=== PATIENT | female | born 1980 | race Caucasian/White ===

== ENCOUNTER 2021-04-22 11:56 | Emergency (ER) | payer MEDICAID, SELFPAY ==
[2021-04-22 11:57] VITALS: BP 163/105; PULSE 101; RESP 16; TEMP 36.8; O2SAT 97; BMI 53.8
--- NOTE | 2021-04-22 12:19 | CT_ITS ---
EXAM: CT ABDOMEN AND PELVIS WITHOUT INTRAVENOUS CONTRAST CLINICAL INDICATION: Left flank pain, eval for stone TECHNIQUE: Helically acquired images were obtained of the abdomen and pelvis without intravenous contrast. This CT exam was performed using one or more of the following dose reduction techniques: automated exposure control, adjustment of the mA and/or kV according to patient size, and/or use of iterative reconstruction technique. This report was created using [employer] report generation technology. COMPARISON: None. FINDINGS: LOWER THORAX: Unremarkable. Lung bases are clear. No cardiomegaly. No significant pericardial effusion. ABDOMEN: LIVER: Unremarkable. Homogeneous. GALLBLADDER AND BILE DUCTS: Cholecystectomy. No intra- or extrahepatic biliary ductal dilation. PANCREAS: Unremarkable. No focal cystic mass. SPLEEN: Unremarkable. Normal size without focal cystic or solid mass. ADRENALS: Unremarkable. No nodules. KIDNEYS AND URETERS: 3 mm calculus of the proximal left ureter with mild hydronephrosis and perinephric stranding. Bilateral renal calculi are identified most conspicuous in the inferior left kidney measuring up to 5 mm. Normal renal size and position. STOMACH AND BOWEL: Unremarkable. No stomach or bowel distention. No focal inflammatory change. PELVIS: APPENDIX: No evidence of acute appendicitis. BLADDER: Unremarkable. REPRODUCTIVE: Unremarkable as visualized. No mass. ABDOMEN and PELVIS: INTRAPERITONEAL SPACE: Unremarkable. No ascites or other fluid collection. No free air. BONES/JOINTS: Unremarkable. No suspicious lytic or blastic abnormality. SOFT TISSUES: Unremarkable. No discrete abdominal or pelvic wall hernia. VASCULATURE: Unremarkable. Abdominal aorta is non-dilated. LYMPH NODES: Unremarkable. No enlarged lymph nodes. TUBES, LINES AND DEVICES: Bilateral fallopian tube occlusion devices. CT/Abdomen/Pelvis without Cont IMPRESSION: 3 mm calculus of the proximal left ureter with mild hydronephrosis and perinephric stranding. Electronically Signed: Doug Leblanc MD (Brooks) at 14:22 EDT , Service support ,
--- NOTE | 2021-04-22 12:38 | EX.ED.DYSGE1 ---
HPI History of Present Illness Chief Complaint: Back Informant: patient Narrative Narrative: Patient is a 40-year-old female who presents to the emergency department for left-sided back pain that wraps around to the left side of her abdomen. This initially started on Saturday. On she did not have any pain. She does not recall any inciting events. She is never had this type of pain before. She does have a history of kidney stones. She denies having any urinary symptoms. No burning with urination, blood in the urine. She has occasionally been nauseous but not vomiting. She denies any change in moving her bowels. No chest pain or shortness of breath. She currently rates the pain as a 7 out of 10. Taking hot baths does seem to relieve this. She has not taken anything for pain today. She does have a history of cholecystectomy as well as tubal ligation. [facility] Medical History (Updated 04/22/21 @ 15:[address] Rafael Hutson DO) Cholecystectomy planned Hyperlipidemia Hyperthyroidism Home Medications cephalexin 500 mg PO BID 7 Days #14 cap 04/22/21 [Rx Last Taken Unknown] hydrocodone-acetaminophen 1 tab PO Q6H 3 Days #12 tablet 04/22/21 [Rx Last Taken Unknown] naproxen [Naprosyn] 500 mg PO Q12H PRN #20 tab 04/22/21 [Rx Last Taken Unknown] tamsulosin [Flomax] 0.4 mg PO DAILY #7 cap 04/22/21 [Rx Last Taken Unknown] Allergy/AdvReac Type Severity Reaction Status Date / Time No Known Allergies Allergy Verified 04/22/21 11:57 Social History Smoking Status: Current every day smoker tobacco type: cigarettes ROS ROS ED Constitutional Constitutional ED: Denies chills or fever(s) Eyes Eyes: Denies change in vision ENT ENT ED: Denies epistaxis or rhinorrhea Cardiovascular Cardiovascular: Denies chest pain or palpitations Respiratory/Chest Respiratory/Chest: Denies cough, dyspnea or dyspnea on exertion Gastrointestinal Gastrointestinal: Reports abdominal pain; Denies diarrhea or vomiting Genitourinary Genitourinary ED: Denies dysuria, hematuria or urinary frequency Musculoskeletal Musculoskeletal: Reports back pain; Denies neck pain Integumentary Denies rash Neurologic Neurologic: Denies dizziness, headache(s) or weakness EXAM Physical Exam Const Vital Signs: 04/22/21 11:57 04/22/21 15:21 Temperature 98.2 F Temperature Source Temporal Pulse Rate 101 H 100 Respiratory Rate 16 14 Blood Pressure 163/105 H 148/85 H Blood Pressure Mean 124 Pulse Ox 97 98 Oxygen Delivery Method Room Air Positive well nourished and well developed General Appearance ED: well developed and NAD HEENT Reports normocephalic, head/scalp atraumatic and moist mucous membranes Eyes PERRL and EOMs intact bilaterally Neck no lymphadenopathy and supple General: Negative for tenderness Chest Wall inspection of chest normal Resp normal respiratory effort and clear to auscultation bilaterally Auscultation: Negative for rales, rhonchi or wheezes Cardio regular rate, regular rhythm and no murmurs GI normal to inspection, nondistended, normoactive bowel sounds Palpation: soft; Negative for guarding or rebound tenderness present Back/Spine Back/Spine Narrative: Tender to left CVA region. This does wrap around to the left upper abdomen. I do not appreciate any overlying skin changes. Extremity normal to inspection General Extremety ED: Negative for edema or tenderness General Extremity: Negative for edema Neuro oriented x3, CN's II-XII intact bilaterally and no sensory deficits noted Sensorium / Orientation: alert Motor Exam: strength 5/5 throughout Psych mental status grossly normal Skin no rashes or lesions noted MDM MDM MDM Narrative Medical decision making narrative: Patient presents to the ED for left-sided back pain that wraps around to the front. She does have a benign physical exam. Will check basic lab work along with CT scan abdomen/pelvis. She is given a dose of Toradol for symptomatic relief. Patient is feeling much better after the dose of Toradol. CT scan was significant for 3 mm ureteral stone. There is perinephric stranding associated with this. She does have a leukocytosis of 21,000. Her kidney function is within normal limits. Urine shows 1+ bacteria but no white blood cells associated this. She has 25 leukocyte esterase but no nitrites. Given her leukocytosis I did contact Dr. Mercado, he applications support engineer urologist. Given the fact she is afebrile here we agreed on treating the patient with outpatient antibiotics. They requested to place the patient on Flomax as well. She will be given a prescription for Sparkill and Naprosyn for symptomatic treatment. She is given urology referral for follow-up. If patient worsens in any way whatsoever she needs to return back to the emergency department. She develops fevers or chills or worsening pain she understands she is to come back. At this time she does feel comfortable being discharged. All findings today were discussed with her. Lab Data Labs: Laboratory Results - last 24 hr 04/22/21 04/22/21 04/22/21 12:55 12:55 13:45 WBC 21.1 H RBC 5.11 Hgb 13.1 Hct 42.2 MCV 82.6 MCH 25.6 L MCHC 31.0 L RDW Std Deviation 50.1 H RDW Coeff of Felipe 16.6 H Plt Count 408 MPV 9.1 Immature Gran % (Auto) 0.600 Neut % (Auto) 74.9 H Lymph % (Auto) 15.2 L [place] % (Auto) 6.4 Eos % (Auto) 2.4 Baso % (Auto) 0.5 Absolute Neuts (auto) 15.8 H Absolute Lymphs (auto) 3.21 Nucleated RBC % 0 Sodium 142 Potassium 3.8 Chloride 108 H Carbon Dioxide 26.0 Anion Gap 8 BUN 13 Creatinine 0.98 Estim Creat Clear Calc 75.69 Est GFR (MDRD) Af Amer 82 Est GFR (MDRD) Non-Af 68 BUN/Creatinine Ratio 13.3 Glucose 98 Calcium 9.1 Total Bilirubin 0.30 AST 20 ALT 35 Alkaline Phosphatase 106 Total Protein 7.3 Albumin 3.6 Globulin 3.7 Albumin/Globulin Ratio 1.0 Lipase 51 L Urine Color Yellow Urine Clarity Sl. Cloudy Urine pH 5.0 Ur Specific [place] 1.025 Urine Protein Negative Urine Glucose (UA) Normal Urine Ketones Negative Urine Occult Blood 25 H Urine Nitrite Negative Urine Bilirubin Negative Urine Urobilinogen Normal Ur Leukocyte Esterase 25 H Urine RBC 0-5 SEEN Urine WBC 0-5 SEEN Ur Squamous Epith Cells 0-5 SEEN Calcium Oxalate Crystal RARE Urine Bacteria 1+ Urine Mucus 0 SEEN Radiography Diagnostic Testing: Radiology Impression Abdomen/Pelvis CT 04/22/21 12:19 IMPRESSION: 3 mm calculus of the proximal left ureter with mild hydronephrosis and perinephric stranding. Electronically Signed: Doug Leblanc MD (Brooks) at 14:22 EDT , Service support , Discharge Plan Triage Chief Complaint: Back ED Provider: Rafael Hutsno Dx/Rx/DC Orders Clinical Impression: Kidney stone, Leukocytosis Instructions: ED Kidney Stone w/ Colic Prescriptions: New hydrocodone-acetaminophen 5-325 mg tablet 1 tab PO Q6H 3 Days Qty: 12 RF: 0 naproxen [Naprosyn] 500 mg tablet 500 mg PO Q12H PRN (Reason: pain) Qty: 20 RF: 0 tamsulosin [Flomax] 0.4 mg capsule 0.4 mg PO DAILY Qty: 7 RF: 0 cephalexin 500 mg capsule 500 mg PO BID 7 Days Qty: 14 RF: 0 Primary Care Provider: Care Physician,No Primary Referrals: Sana Mercado MD [STAFF PHYSICIAN] - 2 Days Care Physician,No Primary [Primary Care Provider] - Disposition Disposition: Home, Self Care Discharge Date/Time: 04/22/21 15:36
[2021-04-22] MEDS: Ketorolac 30 MG/ML Syringe IV (12:59)
[2021-04-22 13:02] LABS: Absolute Lymphocyte Count 3.21 X10^3/uL (0.83-4.51); Absolute Neutrophil Count 15.8 X10^3/uL (2.0-7.7); Basophil% 0.5 % (0-1); Eosinophil# 0.51 X10^3/uL; Eosinophils% 2.4 % (0-5); Hematocrit 42.2 % (37-47); Hemoglobin 13.1 g/dL (12.0-15.0); Lymphocyte # 3.21 X10^3/ul (0.83-4.51); Lymphocyte % 15.2 % (19-41); Mean Corpuscular Hgb 25.6 pg (27.0-32.0); Mean Corpuscular Volume 82.6 fL (81-99); Mean Platelet Vol. 9.1 fl (6.2-12.0); Monocyte# 1.35 X10^3/uL; Monocyte% 6.4 % (0-10); NRBC Flagged by Analyzer 0 % (0-5); Neutrophil # 15.82 X10^3/uL (2.7-7.7); Neutrophil % 74.9 % (47-70); Platelet Count 408 K/mm3 (150-450); RBC Distribution Width CV 16.6 % (11.6-14.6); RBC Distribution Width SD 50.1 fl (35.1-43.9); Red Blood Count 5.11 M/mm3 (4.2-5.4); White Blood Count 21.1 K/mm3 (4.4-11.0)
[2021-04-22 13:19] LABS: AST(SGOT) 20 U/L (15-37); Alanine Aminotransfer ALT/SGPT 35 U/L (13-56); Albumin, Serum 3.6 g/dL (3.2-5.0); Alkaline Phosphatase 106 U/L (45-117); Anion Gap 8 (5-15); BUN 13 mg/dL (7-18); BUN/Creat Ratio 13.3 RATIO (10-20); Calcium,Total 9.1 mg/dL (8.5-10.1); Chloride 108 mmol/L (98-107); Creatinine, Serum 0.98 mg/dL (0.55-1.02); EST Glomerular Filtration Rate 68 mL/min (>60); Est Glom Filt Rate - Afr Amer 82 mL/min (>60); Estimated Creatinine Clearance 75.69 ml/min; Globulin 3.7 g/dL (2.2-4.2); Glucose 98 mg/dL (74-106); Lipase 51 U/L (73-393); Potassium 3.8 mmol/L (3.5-5.1); Protein, Total 7.3 g/dL (6.4-8.2); Sodium Level 142 mmol/L (136-145)
[2021-04-22 13:57] LABS: Mucous, Urine 0 SEEN /hpf (<or=2+)
[2021-04-22 14:00] LABS: Color, Urine Yellow (Yellow); Glucose, Dipstick Normal (Normal); Ketone-Dipstick Negative (Negative); Leukocyte Esterase-Dipstick 25 /ul (Negative); Nitrite-Dipstick Negative (Negative); Occult Blood-Urine 25 /ul (Negative); Protein-Dipstick Negative (Negative); Specific Gravity, Urine 1.025 (1.002-1.030); Urine Bilirubin Dipstick Negative (Negative); Urine Clarity Sl. Cloudy (Clear); Urine Urobilinogen Normal (Normal)
[2021-04-22 14:08] LABS: Bacteria 1+ /hpf (None Seen); Calcium Oxalate Crystals Ur RARE /hpf (<or=2+); Red Blood Cells-Urine 0-5 SEEN /hpf (0-5); Squamous Epithelial Cells - UA 0-5 SEEN /hpf (5-10); White Blood Cells 0-5 SEEN /hpf (0-5)
[2021-04-22] MEDS: Cephalexin 250 MG Capsule 500 MG PO (15:08)
[2021-04-22] MEDS: HYDROcodone Bitartrate/Apap 5/325 Tablet PO (15:08)
[2021-04-22 15:21] VITALS: BP 148/85; PULSE 100; RESP 14; O2SAT 98
== END 2021-04-22 15:36 | disposition home or self-care (01) ==
PROVIDERS: Emergency Provider Emergency Medicine
DX: N13.2 Hydronephrosis with renal and ureteral calculous obstruction (principal); E78.5 Hyperlipidemia, unspecified; D72.829 Elevated white blood cell count, unspecified; E05.90 Thyrotoxicosis, unspecified without thyrotoxic crisis or storm; Z87.442 Personal history of urinary calculi; F17.210 Nicotine dependence, cigarettes, uncomplicated
CPT/HCPCS: 74176; 80053; 81001; 83690; 85025; 96374; 99285; A4216

== ENCOUNTER 2021-08-25 13:21 | Emergency (ER) | payer MEDICAID, SELFPAY ==
[2021-08-25 13:22] VITALS: BP 151/91; PULSE 78; RESP 16; TEMP 35.4; O2SAT 96; BMI 51.7
--- NOTE | 2021-08-25 14:17 | EDS_ITS ---
HPI History of Present Illness Chief Complaint: Flank Pain Informant: patient Onset/Context/Timing Onset: Today Context: Gradual Onset Current Severity: Moderate Maximum Severity: Moderate Narrative Narrative: Patient present secondary to left flank pain. She is a history of kidney stones with similar pain. She states she had pain a couple days ago that was up higher but seem to completely resolved. Today she developed left flank pain wrapping around into the left groin. No dysuria or obvious hematuria. No fever or chills. She did take Tylenol at home prior to arrival. [facility] Medical History (Updated 08/25/21 @ 14:[address] Silvia Jarvis MD) Hyperlipidemia Hyperthyroidism Home Medications cephalexin 500 mg PO BID 7 Days #14 cap 04/22/21 [Rx Last Taken Unknown] hydrocodone-acetaminophen 1 tab PO Q6H 3 Days #12 tablet 04/22/21 [Rx Last Taken Unknown] naproxen [Naprosyn] 500 mg PO Q12H PRN #20 tab 04/22/21 [Rx Last Taken Unknown] buspirone 7.5 mg PO TID 08/25/21 [History Last Taken Unknown] hydrocodone-acetaminophen 1 tab PO Q6H PRN 3 Days #10 tab 08/25/21 [Rx Last Taken Unknown] ketorolac 10 mg PO Q8H PRN 3 Days #9 tab 08/25/21 [Rx Last Taken Unknown] lamotrigine 100 mg PO DAILY 08/25/21 [History Last Taken Unknown] ondansetron 4 mg PO Q8H PRN #10 tab 08/25/21 [Rx Last Taken Unknown] penicillin V potassium 500 mg PO 4X/DAY 08/25/21 [History Last Taken Unknown] Allergy/AdvReac Type Severity Reaction Status Date / Time No Known Allergies Allergy Verified 08/25/21 13:24 Surgical History Hx of cholecystectomy Social History Smoking Status: Current every day smoker tobacco type: cigarettes ROS ROS ED Constitutional Constitutional ED: Denies chills or fever(s) Eyes Eyes: Denies change in vision ENT ENT ED: Denies sore throat Cardiovascular Cardiovascular: Denies chest pain Respiratory/Chest Respiratory/Chest: Denies cough or dyspnea Gastrointestinal Gastrointestinal: Reports abdominal pain; Denies diarrhea, nausea or vomiting Genitourinary Genitourinary ED: Denies dysuria or hematuria Musculoskeletal Musculoskeletal: Reports back pain Integumentary Denies rash Neurologic Neurologic: Denies headache(s) or weakness Allergic/Immunologic Allergic/Immunologic ED: Denies urticaria EXAM Physical Exam Const Vital Signs: 08/25/21 13:22 08/25/21 14:12 Temperature 95.7 F L Temperature Source Temporal Pulse Rate 78 Respiratory Rate 16 Respiratory Effort Normal Non-Labored Respiratory Pattern Normal Blood Pressure 151/91 H Blood Pressure Mean 111 Pulse Ox 96 Oxygen Delivery Method Room Air Positive well nourished and well developed General Appearance ED: well developed HEENT Reports normocephalic and head/scalp atraumatic Eyes PERRL and EOMs intact bilaterally Neck supple Chest Wall inspection of chest normal and palpation of chest normal Resp normal respiratory effort and clear to auscultation bilaterally Cardio regular rate and regular rhythm GI non-tender Auscultation: hypoactive bowel sounds Palpation: soft Extremity normal to inspection Neuro oriented x3 Sensorium / Orientation: alert Psych mental status grossly normal Skin no rashes or lesions noted MDM MDM MDM Narrative Medical decision making narrative: Patient was given morphine, Zofran, Toradol. Lab work, urinalysis, CT flank ordered. Lab Data Attestation: I reviewed the patient's lab results. Labs: Laboratory Results - last 24 hr 08/25/21 08/25/21 08/25/21 13:35 13:35 13:35 WBC 14.4 H RBC 5.30 Hgb 13.9 Hct 43.1 MCV 81.3 MCH 26.2 L MCHC 32.3 RDW Std Deviation 42.2 RDW Coeff of Felipe 14.5 Plt Count 356 MPV 10.0 Immature Gran % (Auto) 0.500 Neut % (Auto) 58.3 Lymph % (Auto) 32.0 [place] % (Auto) 6.3 Eos % (Auto) 2.2 Baso % (Auto) 0.7 Absolute Neuts (auto) 8.4 H Absolute Lymphs (auto) 4.61 H Nucleated RBC % 0 Atypical Lymphocytes RARE Platelet Estimate ADEQUATE RBC Morphology N CHROM Anisocytosis RARE Sodium 137 Potassium 3.7 Chloride 105 Carbon Dioxide 24.0 Anion Gap 8 BUN 12 Creatinine 0.78 Estim Creat Clear Calc 95.10 Est GFR (MDRD) Af Amer 106 Est GFR (MDRD) Non-Af 88 BUN/Creatinine Ratio 15.4 Glucose 140 H Calcium 9.2 Serum , Qual Cancelled Urine Color Urine Clarity Urine pH Ur Specific [place] Urine Protein Urine Glucose (UA) Urine Ketones Urine Occult Blood Urine Nitrite Urine Bilirubin Urine Urobilinogen Ur Leukocyte Esterase Urine RBC Urine WBC Ur Squamous Epith Cells Urine Bacteria Urine Mucus Urine Test 08/25/21 08/25/21 13:35 14:24 WBC RBC Hgb Hct MCV MCH MCHC RDW Std Deviation RDW Coeff of Felipe Plt Count MPV Immature Gran % (Auto) Neut % (Auto) Lymph % (Auto) [place] % (Auto) Eos % (Auto) Baso % (Auto) Absolute Neuts (auto) Absolute Lymphs (auto) Nucleated RBC % Atypical Lymphocytes Platelet Estimate RBC Morphology Anisocytosis Sodium Potassium Chloride Carbon Dioxide Anion Gap BUN Creatinine Estim Creat Clear Calc Est GFR (MDRD) Af Amer Est GFR (MDRD) Non-Af BUN/Creatinine Ratio Glucose Calcium Serum , Qual Urine Color Yellow Urine Clarity Sl. Cloudy Urine pH 6.0 Ur Specific [place] 1.020 Urine Protein 100 H Urine Glucose (UA) Normal Urine Ketones 5 H Urine Occult Blood 250 H Urine Nitrite Negative Urine Bilirubin Negative Urine Urobilinogen Normal Ur Leukocyte Esterase 100 H Urine RBC 50-100 SEEN Urine WBC 10-25 SEEN Ur Squamous Epith Cells 10-25 SEEN Urine Bacteria 0 SEEN Urine Mucus 0 SEEN Urine Test Negative Radiography Diagnostic Testing: Clinical Impression(s) from Imaging Studies Abdomen/Pelvis CT 08/25/21 15:13 IMPRESSION: 5.6 mm calculus in the proximal left ureter causing mild degree of left hydronephrosis. Electronically Signed: Barrett Bang MD at 15:41 EDT , Service support , Treatment and Re-Evaluation Comments:: Repeat evaluation patient's resting comfortably. Pain is significantly improved. Test results reviewed with her including evidence of a 5.6 mm proximal left ureter stone. Patient will be treated with analgesics at home. She is given urology follow-up. Return instructions provided. Discharge Plan Triage Chief Complaint: Flank Pain ED Provider: Jarvis,Silvia Dx/Rx/DC Orders Instructions: ED Kidney Stone w/ Colic Prescriptions: New ketorolac 10 mg tablet 10 mg PO Q8H PRN (Reason: pain) 3 Days Qty: 9 RF: 0 hydrocodone-acetaminophen 5-325 mg tablet 1 tab PO Q6H PRN (Reason: pain) 3 Days Qty: 10 RF: 0 ondansetron 4 mg tablet,disintegrating 4 mg PO Q8H PRN (Reason: nausea and vomiting) Qty: 10 RF: 0 No Action hydrocodone-acetaminophen 5-325 mg tablet 1 tab PO Q6H 3 Days Qty: 12 RF: 0 naproxen [Naprosyn] 500 mg tablet 500 mg PO Q12H PRN (Reason: pain) Qty: 20 RF: 0 cephalexin 500 mg capsule 500 mg PO BID 7 Days Qty: 14 RF: 0 penicillin V potassium 500 mg tablet 500 mg PO 4X/DAY RF: 0 buspirone 7.5 mg tablet 7.5 mg PO TID RF: 0 lamotrigine 100 mg tablet 100 mg PO DAILY RF: 0 Primary Care Provider: Care Physician,No Primary Referrals: Bo Brewster MD [STAFF PHYSICIAN] - 3-5 Days if not improving Care Physician,No Primary [Primary Care Provider] - Disposition Disposition: Home, Self Care
[2021-08-25 14:30] LABS: Bacteria 0 SEEN /hpf (None Seen); Mucous, Urine 0 SEEN /hpf (<or=2+)
[2021-08-25] MEDS: Morphine 4 MG/ML Syringe IV (14:32)
[2021-08-25] MEDS: Ketorolac 30 MG/ML Syringe IV (14:33)
[2021-08-25] MEDS: Ondansetron 4 MG/2 ML Vial IV (14:33)
[2021-08-25 14:34] LABS: Absolute Lymphocyte Count 4.61 X10^3/uL (0.83-4.51); Absolute Neutrophil Count 8.4 X10^3/uL (2.0-7.7); Basophil% 0.7 % (0-1); Eosinophil# 0.31 X10^3/uL; Eosinophils% 2.2 % (0-5); Hematocrit 43.1 % (37-47); Hemoglobin 13.9 g/dL (12.0-15.0); Lymphocyte # 4.61 X10^3/ul (0.83-4.51); Mean Corp Hgb Conc 32.3 g/dL (32-36); Mean Corpuscular Hgb 26.2 pg (27.0-32.0); Mean Corpuscular Volume 81.3 fL (81-99); Monocyte% 6.3 % (0-10); NRBC Flagged by Analyzer 0 % (0-5); Neutrophil % 58.3 % (47-70); POSITIVE MORPHOLOGY YES; Platelet Count 356 K/mm3 (150-450); RBC Distribution Width CV 14.5 % (11.6-14.6); RBC Distribution Width SD 42.2 fl (35.1-43.9); White Blood Count 14.4 K/mm3 (4.4-11.0)
[2021-08-25] MEDS: 0.9% Normal Saline 1,000 ML 150 ML IV (14:34)
[2021-08-25 14:35] LABS: Differential Indicated SCAN CRITERIA MET
[2021-08-25 14:40] LABS: Color, Urine Yellow (Yellow); Glucose, Dipstick Normal (Normal); Ketone-Dipstick 5 mg/dl (Negative); Leukocyte Esterase-Dipstick 100 /ul (Negative); Nitrite-Dipstick Negative (Negative); Occult Blood-Urine 250 /ul (Negative); Protein-Dipstick 100 mg/dl (Negative); Urine Bilirubin Dipstick Negative (Negative); Urine Clarity Sl. Cloudy (Clear); Urine Urobilinogen Normal (Normal)
[2021-08-25 14:46] LABS: Red Blood Cells-Urine 50-100 SEEN /hpf (0-5); Squamous Epithelial Cells - UA 10-25 SEEN /hpf (5-10)
[2021-08-25 14:47] LABS: White Blood Cells 10-25 SEEN /hpf (0-5)
[2021-08-25 14:48] LABS: Anion Gap 8 (5-15); BUN 12 mg/dL (7-18); BUN/Creat Ratio 15.4 RATIO (10-20); Calcium,Total 9.2 mg/dL (8.5-10.1); Chloride 105 mmol/L (98-107); Creatinine, Serum 0.78 mg/dL (0.55-1.02); EST Glomerular Filtration Rate 88 mL/min (>60); Est Glom Filt Rate - Afr Amer 106 mL/min (>60); Glucose 140 mg/dL (74-106); Potassium 3.7 mmol/L (3.5-5.1); Sodium Level 137 mmol/L (136-145)
[2021-08-25 14:57] LABS: Internal QC Validated? YES +Cl - CLEAR BKGD; Pregnancy, Urine Negative Negative
--- NOTE | 2021-08-25 15:13 | CT_ITS ---
STUDY: CT ABDOMEN AND PELVIS WITHOUT CONTRAST REASON FOR EXAM: Female, 40 years old. Left flank pain RADIATION DOSAGE (If Supplied By Facility): CTDIvol = ( 33.67 ) mGy, DLP = ( 1850.82 ) mGycm TECHNIQUE: Transaxial images were obtained from the dome of the diaphragm to the symphysis pubis without oral contrast, and without intravenous contrast. Sagittal and coronal images were reconstructed. Individualized dose optimization techniques were used for this CT. COMPARISON: Comparison is made with prior study dated 04/22/2021. FINDINGS: The visualized lung bases are unremarkable. The visualized portions of the heart are within normal limits. Normal liver. There are surgical clips in the gallbladder fossa consistent with a prior cholecystectomy. Normal spleen. Normal pancreas. Normal bilateral adrenal glands. Nonobstructive punctate right intrarenal calculi. Mild degree of left hydronephrosis and left hydroureter due to a 5.6 mm calculus in the proximal left ureter just distal to the ureteropelvic junction. Normal visualized stomach. Normal small intestine. Normal colon. The appendix is visualized and appears normal. Normal abdominal aorta. Normal inferior vena cava. Normal retroperitoneum. Normal urinary bladder. Bilateral tubal ligation clips are seen. Normal abdominal wall. Normal osseous structures. CT/Abdomen/Pelvis without Cont IMPRESSION: 5.6 mm calculus in the proximal left ureter causing mild degree of left hydronephrosis. Electronically Signed: Barrett Bang MD at 15:41 EDT , Service support ,
[2021-08-25 15:40] LABS: Anisocytosis RARE; Atypical Lymphocyte RARE %; Platelet Estimate ADEQUATE (ADEQ); Red Cell Morphology N CHROM NORMAL (NORM C&C)
[2021-08-25 16:02] VITALS: BP 123/82; PULSE 69; RESP 15; O2SAT 97
== END 2021-08-25 16:04 | disposition home or self-care (01) ==
PROVIDERS: Emergency Provider Emergency Medicine
DX: N13.2 Hydronephrosis with renal and ureteral calculous obstruction (principal); E78.5 Hyperlipidemia, unspecified; E05.90 Thyrotoxicosis, unspecified without thyrotoxic crisis or storm; Z87.442 Personal history of urinary calculi; Z79.899 Other long term (current) drug therapy; F17.210 Nicotine dependence, cigarettes, uncomplicated
CPT/HCPCS: 74176; 80048; 81001; 81025; 85025; 96361; 96374; 96375; 99283; J7030; A4216; J2405

== ENCOUNTER 2022-06-11 12:06 | Emergency (ER) | payer MEDICAID, SELFPAY ==
[2022-06-11 12:07] VITALS: BP 125/88; PULSE 76; RESP 18; TEMP 36.2; O2SAT 96; BMI 45.7
--- NOTE | 2022-06-11 12:27 | EKG12_ITS ---
Test Reason : dizziness Blood Pressure : / mmHG Vent. Rate : 067 BPM Atrial Rate : 067 BPM P-R Int : 172 ms QRS Dur : 086 ms QT Int : 358 ms P-R-T Axes : 038 -09 144 degrees QTc Int : 378 ms Normal sinus rhythm Low voltage QRS Nonspecific T wave abnormality Poor R wave progression Abnormal ECG Confirmed by DEVANTE PARKER, RODDY ([id number]), editorial intern RAKAN PERKINS ([id number]) on 06/13/2022 9:40:07 AM Referred By: Marylin Confirmed By:RODDY LOW MD
--- NOTE | 2022-06-11 12:29 | EDS_ITS ---
HPI History of Present Illness Chief Complaint: Dizziness Narrative Narrative: Patient with past medical history of borderline diabetes and cholesterol problems presents with multiple somatic complaints. She states she is lightheaded and near syncopal whenever she stands up too quickly. It is worse with standing. She also complains of right hand numbness, mainly in her second, third, and fourth digits that happens intermittently over the last week. Today she awoke and states that she feels very lightheaded and off balance when she stands up too quickly. She denies any fevers or chills. No chest pain but she states she gets short of breath when she exerts herself. She is a smoker. She has an occasional cough. She denies any dysuria or hematuria. No recent nausea or vomiting. No diarrhea. No true exacerbating or alleviating symptoms except for lightheadedness and near syncope when she stands up too quickly. [facility] Medical History Hyperlipidemia Hyperthyroidism Home Medications buspirone 7.5 mg tablet 7.5 mg PO TID 08/25/21 [History Last Taken Unknown] lamotrigine 100 mg tablet 100 mg PO DAILY 08/25/21 [History Last Taken Unknown] atorvastatin 20 mg tablet 20 mg PO DAILY 06/11/22 [History Last Taken Unknown] metformin 500 mg tablet,extended release 24 hr 500 mg PO DAILY 06/11/22 [History Last Taken Unknown] quetiapine 50 mg tablet,extended release 24 hr 100 mg PO DAILY 06/11/22 [History Last Taken Unknown] Allergy/AdvReac Type Severity Reaction Status Date / Time No Known Allergies Allergy Verified 06/11/22 12:07 Surgical History Hx of cholecystectomy Social History Smoking Status: Current every day smoker tobacco type: cigarettes ROS ROS ED ROS Narrative Constitutional: No fever, no chills. HEENT: No sore throat. No neck pain. No loss of vision. No rhinorrhea. Cardiovascular: No chest pain. No palpitations. No pedal edema. Respiratory: Occasional cough, positive dyspnea on exertion, shortness of breath. Abdominal: No abdominal pain. No nausea. No vomiting. Genitourinary: No dysuria. No hematuria. Musculoskeletal: No myalgias. No arthralgias. Neurologic: No headaches. No dizziness. Positive lightheadedness. Intermittent paresthesias of right hand, second through fourth digits. Skin: No rash. No change in color. Psychiatric: No depression. No anxiety. EXAM Physical Exam Narrative Exam Narrative: Afebrile. Vital signs noted. HEENT: Normocephalic. Atraumatic. PERRL, EOMI. Neck soft and supple. No point tenderness or step off. Cardiovascular: Regular rate and rhythm. No murmurs, rubs, or gallops appreciated. Respiratory: No tachypnea. Lungs clear to auscultation bilaterally. Gastrointestinal: Abdomen soft, nontender, with normoactive bowel sounds. No rebound or guarding. Neurological: Awake. Alert. Nonfocal, nonlateralizing. Skin: No rash. Normal color. No pallor. Musculoskeletal: No pedal edema. Full range of motion extremities. Const Vital Signs: 06/11/22 12:07 06/11/22 12:15 06/11/22 12:39 Temperature 97.2 F L Temperature Source Temporal Pulse Rate 76 Pulse Rate [Lying] 68 Pulse Rate [Sitting (for 1 minute prior to obtaining)] 71 Pulse Rate [Standing (for 1 minute prior to obtaining)] 90 Respiratory Rate 18 Respiratory Effort Short of Breath Blood Pressure 125/88 H Blood Pressure [Lying] 122/84 H Blood Pressure [Sitting (for 1 minute prior to obtaining)] 107/79 Blood Pressure [Standing (for 1 minute prior to obtaining)] 119/86 H Blood Pressure Mean 100 Blood Pressure Mean [Lying] 96 Blood Pressure Mean [Sitting (for 1 minute prior to obtaining)] 88 Blood Pressure Mean [Standing (for 1 minute prior to obtaining)] 97 Pulse Ox 96 Oxygen Delivery Method Room Air MDM MDM MDM Narrative Medical decision making narrative: Comprehensive work-up was pursued. EKG interpreted by myself demonstrates normal sinus rhythm at 67 bpm without ectopy or acute ST changes. No STEMI. She has a slightly elevated white count of 12.1 which I think is nonspecific, n ormal hemoglobin of 12.8 with hematocrit 39.0. Normal platelet count of 273. Electrolyte panel is grossly unremarkable except for chloride elevated at 108. Normal anion gap of 5. She does have an elevated creatinine of 1.43 which she will have rechecked by her primary care physician. She was bolused normal saline 1 L intravenously. Normal BUN of 17. Magnesium normal at 2.5. High-sensitivity troponin is normal at 3, and this is greater than a 6-hour troponin. Chest x-ray interpreted by myself shows no acute process. At this point in time, given normal orthostatic vital signs, I feel she be discharged safely home with follow-up to her primary care provider. Smoking cessation was discussed regarding her shortness of breath. Disposition is discharged home in stable condition. Return instructions to the emergency department were reviewed. Lab Data Attestation: I reviewed the patient's lab results. Labs: Laboratory Results - last 24 hr 06/11/22 06/11/22 12:37 12:37 WBC 12.1 H RBC 4.30 Hgb 12.8 Hct 39.0 MCV 90.7 MCH 29.8 MCHC 32.8 RDW Std Deviation 56.4 H RDW Coeff of Felipe 16.9 H Plt Count 273 MPV 10.0 Immature Gran % (Auto) 0.200 Neut % (Auto) 53.8 Lymph % (Auto) 37.3 Christian % (Auto) 5.5 Eos % (Auto) 2.6 Baso % (Auto) 0.6 Absolute Neuts (auto) 6.5 Absolute Lymphs (auto) 4.50 Nucleated RBC % 0 Sodium 140 Potassium 3.9 Chloride 108 H Carbon Dioxide 27.0 Anion Gap 5 BUN 17 Creatinine 1.43 H Estim Creat Clear Calc 51.36 Est GFR (MDRD) Af Amer 52 L Est GFR (MDRD) Non-Af 43 L BUN/Creatinine Ratio 11.9 Glucose 86 Calcium 8.9 Magnesium 2.5 Total Bilirubin 0.50 AST 35 ALT 27 Alkaline Phosphatase 74 Troponin I High Sens 3 Total Protein 7.3 Albumin 4.1 Globulin 3.2 Albumin/Globulin Ratio 1.3 Radiography Diagnostic Testing: Clinical Impression(s) from Imaging Studies Chest X-Ray 06/11/22 12:40 IMPRESSION: Normal x-ray examination of the chest. Electronically Signed: Chris Gilbert MD at 13:00 EDT , Discharge Plan Triage Chief Complaint: Dizziness Other Complaint: Numb/Ting Shortness of Breath ED Provider: Hunter Coulter Dx/Rx/DC Orders Clinical Impression: Postural dizziness with near syncope, Shortness of breath, Elevated serum creatinine Instructions: ED Dizziness, Uncertain Cause, ED Dyspnea, ED Near-Fainting, Uncertain Cause Prescriptions: No Action buspirone 7.5 mg tablet 7.5 mg PO TID lamotrigine 100 mg tablet 100 mg PO DAILY atorvastatin 20 mg tablet 20 mg PO DAILY metformin 500 mg tablet extended release 24 hr 500 mg PO DAILY quetiapine 50 mg tablet extended release 24 hr 100 mg PO DAILY Label Comments: TAKE 2 TABLETS BY MOUTH ONCE DAILY Primary Care Provider: Care Physician,No Primary Referrals: Care Physician,No Primary [Primary Care Provider] - Activity Restrictions/Additional Instructions: Stop smoking. Follow-up with your [facility] primary care physician in the [place] as soon as possible. Disposition Disposition: Home, Self Care
[2022-06-11 12:39] VITALS: BP 107/79; BP 119/86; BP 122/84; PULSE 68; PULSE 71; PULSE 90
[2022-06-11] MEDS: 0.9% Normal Saline 1,000 ML 1000 ML IV (12:39)
--- NOTE | 2022-06-11 12:40 | RAD_ITS ---
STUDY: X-RAY CHEST REASON FOR EXAM: Female, 41 years old. Shortness of Breath TECHNIQUE: Single AP portable view of the chest. COMPARISON: None. FINDINGS: The lungs are clear and expanded. There is no demonstrated pleural abnormality. Normal size heart. Normal mediastinum and rosenda. Normal visualized pulmonary arteries. Normal visualized aortic arch and descending thoracic aorta. Normal visualized thoracic spine. Normal visualized ribs, clavicles, and shoulders. There is no demonstrated abnormality of the visualized soft tissue structures of the upper abdomen. RAD/Chest 1 View IMPRESSION: Normal x-ray examination of the chest. Electronically Signed: Chris Gilbert MD at 13:00 EDT ,
[2022-06-11 12:45] LABS: Absolute Neutrophil Count 6.5 X10^3/uL (2.0-7.7); Basophil# 0.07 X10^3/uL; Basophil% 0.6 % (0-1); Eosinophil# 0.32 X10^3/uL; Eosinophils% 2.6 % (0-5); Hemoglobin 12.8 g/dL (12.0-15.0); Lymphocyte % 37.3 % (19-41); Mean Corp Hgb Conc 32.8 g/dL (32-36); Mean Corpuscular Hgb 29.8 pg (27.0-32.0); Mean Corpuscular Volume 90.7 fL (81-99); Monocyte# 0.66 X10^3/uL; Monocyte% 5.5 % (0-10); NRBC Flagged by Analyzer 0 % (0-5); Neutrophil # 6.51 X10^3/uL (2.7-7.7); Neutrophil % 53.8 % (47-70); Platelet Count 273 K/mm3 (150-450); RBC Distribution Width CV 16.9 % (11.6-14.6); RBC Distribution Width SD 56.4 fl (35.1-43.9); White Blood Count 12.1 K/mm3 (4.4-11.0)
--- NOTE | 2022-06-11 12:49 | CM.ED ---
SW Note Referral Source: Case Find Referral Reason: No Primary Care Physician (PCP) SW reviewed chart and noted that patient has no PCP. SW provided patient with list of [facility] and [facility] Physician List for reference. SW also provided patient with handout ?Where to go When?. No other issues or concerns voiced at this time. SW remains available for any additional needs. Plan: Provided patient with PCP information Rose Mary CHOWDHURY
[2022-06-11 13:02] LABS: ALB/GLOB Ratio 1.3 RATIO (0.9-2.4); AST(SGOT) 35 U/L (15-37); Alanine Aminotransfer ALT/SGPT 27 U/L (13-56); Albumin, Serum 4.1 g/dL (3.2-5.0); Alkaline Phosphatase 74 U/L (45-117); Anion Gap 5 (5-15); BUN 17 mg/dL (7-18); BUN/Creat Ratio 11.9 RATIO (10-20); Calcium,Total 8.9 mg/dL (8.5-10.1); Chloride 108 mmol/L (98-107); Creatinine, Serum 1.43 mg/dL (0.55-1.02); EST Glomerular Filtration Rate 43 mL/min (>60); Est Glom Filt Rate - Afr Amer 52 mL/min (>60); Estimated Creatinine Clearance 51.36 ml/min; Globulin 3.2 g/dL (2.2-4.2); Glucose 86 mg/dL (74-106); Magnesium 2.5 mg/dL (1.6-2.6); Potassium 3.9 mmol/L (3.5-5.1); Protein, Total 7.3 g/dL (6.4-8.2); Sodium Level 140 mmol/L (136-145); Troponin-I HS 3 pg/mL (3.0-54.0)
== END 2022-06-11 15:05 | disposition home or self-care (01) ==
PROVIDERS: Emergency Provider Emergency Medicine; Visit Provider Emergency Medicine
DX: R42 Dizziness and giddiness (principal); R06.02 Shortness of breath; R79.89 Other specified abnormal findings of blood chemistry; E78.5 Hyperlipidemia, unspecified; E05.90 Thyrotoxicosis, unspecified without thyrotoxic crisis or storm; Z79.899 Other long term (current) drug therapy; Z79.84 Long term (current) use of oral hypoglycemic drugs; F17.210 Nicotine dependence, cigarettes, uncomplicated; R20.2 Paresthesia of skin
CPT/HCPCS: 71045; 80053; 83735; 84484; 85025; 93005; 96360; 99285; J7030; A4216

== ENCOUNTER 2023-07-20 10:09 | Emergency (ER) | payer MEDICAID, SELFPAY ==
[2023-07-20 10:11] VITALS: BP 122/82; PULSE 78; RESP 20; TEMP 36.6; O2SAT 99; BMI 40.6
--- NOTE | 2023-07-20 10:42 | EDS_ITS ---
HPI History of Present Illness Chief Complaint: Flank Pain Informant: patient Narrative Narrative: That we [id number] female presenting to the emergency room for the evaluation of abdominal and flank pain. Patient states for the past several days she has had intermittent right flank pain occasionally radiates to the suprapubic right lower quadrant area. She has had prior kidney stones. She states there are times where she is pain-free. Standing up for periods of time and movement make this worse. She denies any hematuria or urinary symptoms. No bowel changes. No rashes or fevers. She denies any radicular symptoms to the leg. No direct trauma to the regions that are painful. She has had a recent increase in her Lamictal dosing. [facility] Medical History Hyperlipidemia Hyperthyroidism Home Medications buspirone 7.5 mg tablet 7.5 mg PO TID 08/25/21 [History Last Taken Unknown] lamotrigine 100 mg tablet 100 mg PO DAILY 08/25/21 [History Last Taken Unknown] atorvastatin 20 mg tablet 20 mg PO DAILY 06/11/22 [History Last Taken Unknown] metformin 500 mg tablet,extended release 24 hr 500 mg PO DAILY 06/11/22 [History Last Taken Unknown] quetiapine 50 mg tablet,extended release 24 hr 100 mg PO DAILY 06/11/22 [History Last Taken Unknown] cyclobenzaprine 10 mg tablet 10 mg PO TID PRN Muscle Spasm #15 TABLETS 07/20/23 [Rx Last Taken Unknown] hydrocodone-acetaminophen 5-325mg 5mg-325mg 1 tab PO Q6H PRN PRN Pain 3 days #12 TABLETS 07/20/23 [Rx Last Taken Unknown] Allergy/AdvReac Type Severity Reaction Status Date / Time No Known Allergies Allergy Verified 07/20/23 10:10 Surgical History Hx of cholecystectomy Social History Smoking Status: Current every day smoker tobacco type: cigarettes ROS ROS ED Constitutional Constitutional ED: Denies chills, fever(s) or weight loss Eyes Eyes: Denies change in vision or diplopia ENT ENT ED: Denies ear pain, rhinorrhea or sore throat Cardiovascular Cardiovascular: Denies chest pain, orthopnea, palpitations or racing heartbeat Respiratory/Chest Respiratory/Chest: Denies cough, dyspnea or orthopnea Gastrointestinal Gastrointestinal: Reports abdominal pain and nausea; Denies constipation, diarrhea or vomiting Genitourinary Genitourinary ED: Denies dysuria, hematuria or urinary frequency Musculoskeletal Musculoskeletal: Reports back pain; Denies arthralgias, myalgias or neck pain Integumentary Denies abscess or rash Neurologic Neurologic: Denies headache(s) or weakness Psychiatric Psychiatric: Denies anxiety, depression, suicidal ideation or suicidal thoughts Endocrine Endocrinology: Denies polydipsia, polyphagia or polyuria Allergic/Immunologic Allergic/Immunologic ED: Denies mouth swelling, tongue swelling or urticaria EXAM Physical Exam Narrative Exam Narrative: Patient is sitting on the bed. She is tearful. Const Vital Signs: 07/20/23 10:11 07/20/23 13:25 Temperature 97.9 F Temperature Source Oral Pulse Rate 78 60 Respiratory Rate 20 H 18 Blood Pressure 122/82 H 103/70 Blood Pressure Mean 95 81 Pulse Ox 99 95 Oxygen Delivery Method Room Air Room Air Positive well nourished, well developed and obese General Appearance ED: well developed Nutritional Appearance: obese HEENT Reports normocephalic, head/scalp atraumatic and moist mucous membranes Eyes PERRL and EOMs intact bilaterally Neck no lymphadenopathy, supple and no JVD Resp normal respiratory effort and clear to auscultation bilaterally Cardio regular rate, regular rhythm and no murmurs GI normal to inspection, nondistended, normoactive bowel sounds and non-tender Palpation: soft Back/Spine no CVA tenderness and normal ROM Back/Spine Narrative: Tender to palpation in the lower right lumbar region/right flank. No rashes noted. Extremity normal to inspection General Extremety ED: Negative for edema General Extremity: Negative for edema Neuro oriented x3 and CN's II-XII intact bilaterally Sensorium / Orientation: alert Motor Exam: strength 5/5 throughout Psych mental status grossly normal Mood & Affect: Negative for depressed or tearful Skin no rashes or lesions noted and no wounds MDM MDM MDM Narrative Medical decision making narrative: White count is 10.5. Normal BMP. Urinalysis is contaminated but no overt infection. CT of the abdomen pelvis demonstrates bilateral renal stones but no obstruction. Patient received a dose of Toradol has been resting more comfortably. I think most likely this is musculoskeletal in nature. She should follow-up with urology for the renal stones. I can write for some Flexeril and pain medication and also encourage primary care follow-up Lab Data Attestation: I reviewed the patient's lab results. Labs: Laboratory Results - last 24 hr 07/20/23 07/20/23 10:57 12:02 WBC 10.5 RBC 4.73 Hgb 11.8 L Hct 39.0 MCV 82.5 MCH 24.9 L MCHC 30.3 L RDW Std Deviation 55.4 H RDW Coeff of Felipe 18.4 H Plt Count 378 MPV 9.7 Immature Gran % (Auto) 0.400 Neut % (Auto) 62.6 Lymph % (Auto) 25.0 Nicholas % (Auto) 8.4 Eos % (Auto) 2.8 Baso % (Auto) 0.8 Absolute Neuts (auto) 6.6 Absolute Lymphs (auto) 2.62 Nucleated RBC % 0 Sodium 138 Potassium 4.1 Chloride 108 H Carbon Dioxide 26.0 Anion Gap 4 L BUN 12 Creatinine 0.82 Estim Creat Clear Calc 88.69 Est GFR (MDRD) Af Amer 99 Est GFR (MDRD) Non-Af 82 BUN/Creatinine Ratio 14.7 Glucose 97 Calcium 8.9 Serum , Qual NEGATIVE Urine Color Yellow Urine Clarity Sl. Cloudy Urine pH 6.0 Ur Specific [place] 1.015 Urine Protein 30 H Urine Glucose (UA) Normal Urine Ketones Negative Urine Occult Blood 250 H Urine Nitrite Negative Urine Bilirubin Negative Urine Urobilinogen Normal Ur Leukocyte Esterase 100 H Urine RBC 10-25 SEEN Urine WBC 10-25 SEEN Ur Squamous Epith Cells 10-25 SEEN Urine Bacteria 1+ Urine Mucus 0 SEEN Radiography Diagnostic Testing: Clinical Impression(s) from Imaging Studies Abdomen/Pelvis CT 07/20/23 10:42 IMPRESSION: Bilateral nonobstructing renal calculi measuring up to 12 mm on the left. Atherosclerosis. Electronically Signed: Mena Whyte MD at 13:01 EDT , Discharge Plan Triage Chief Complaint: Flank Pain ED Provider: Andrew Marino Dx/Rx/DC Orders Clinical Impression: Back pain, Abdominal pain, Bilateral renal stones Instructions: ED Back Pain (Acute or Chronic), ED Kidney Stone Undescended No ... Prescriptions: New hydrocodone-acetaminophen [hydrocodone-acetaminophen] 5-325 mg tablet 1 tab PO Q6H PRN PRN (Reason: Pain) 3 Days Qty: 12 0RF cyclobenzaprine [cyclobenzaprine] 10 mg tablet 10 mg PO TID PRN (Reason: Muscle Spasm) Qty: 15 0RF No Action buspirone 7.5 mg tablet 7.5 mg PO TID lamotrigine 100 mg tablet 100 mg PO DAILY atorvastatin 20 mg tablet 20 mg PO DAILY metformin 500 mg tablet extended release 24 hr 500 mg PO DAILY quetiapine 50 mg tablet extended release 24 hr 100 mg PO DAILY Patient Comments: TAKE 2 TABLETS BY MOUTH ONCE DAILY Primary Care Provider: Magda Monet NP Referrals: Bo Brewster MD [Med Staff - Active Staff] - As soon as possible (for urology ) Care Physician,No Primary [Non-Staff] - Disposition Disposition: Home, Self Care
--- NOTE | 2023-07-20 10:42 | CT_ITS ---
INDICATION: Kidney Stone. Right flank pain EXAMINATION: CT ABDOMEN AND PELVIS WITHOUT CONTRAST - CT Abdomen And Pelvis W/O Contrast Injection TECHNIQUE: Helically acquired images were obtained of the abdomen and pelvis without oral or IV contrast. A radiation dose optimization technique was used for this scan. IV Contrast dosage and agent: None. Oral contrast: None. RADIATION DOSAGE (If Supplied By Facility): CTDIvol = ( 23.67 ) mGy, DLP = ( 1336.56 ) mGycm COMPARISON: August 25, 2021 FINDINGS: LOWER CHEST: Lung bases are clear. No cardiomegaly or pericardial effusion. The lack of intravenous contrast limits evaluation of solid visceral organs. LIVER: Homogeneous. There are two stable punctate calcifications within the liver that likely reflect granulomas. No focal mass. GALLBLADDER AND BILIARY TREE: There are surgical clips within the gallbladder fossa consistent with prior cholecystectomy. No intra- or extrahepatic biliary ductal dilation. PANCREAS: No focal cystic or solid mass. SPLEEN: Normal size without focal cystic or solid mass. ADRENAL GLANDS: No nodules. KIDNEYS AND URETERS: Normal renal size and position. There are bilateral nonobstructing renal calculi including an 11 m calculus within the right renal pelvis and a 12 mm calculus within the lower pole of the left kidney. PERITONEUM: No ascites or free air. No other fluid collection. BOWEL: No evidence of acute appendicitis. No stomach or bowel distension. There is intramural fat throughout the colon suggestive of prior inflammation. LYMPH NODES: No enlarged mesenteric or retroperitoneal lymph nodes. VESSELS: Aorta is non-dilated. There are peripheral calcifications of the abdominal aorta. URINARY BLADDER: Unremarkable. REPRODUCTIVE ORGANS: There are stable coils within the fallopian tubes. No pelvic masses. ABDOMINAL WALL: No discrete abdominal or pelvic wall hernia. BONES: [No lytic or blastic abnormality.] CT/Abdomen/Pelvis without Cont IMPRESSION: Bilateral nonobstructing renal calculi measuring up to 12 mm on the left. Atherosclerosis. Electronically Signed: Mena Whyte MD at 13:01 EDT ,
[2023-07-20] MEDS: Ketorolac 30 MG/ML Syringe IV (10:52)
[2023-07-20 11:10] LABS: Absolute Lymphocyte Count 2.62 X10^3/uL (0.83-4.51); Absolute Neutrophil Count 6.6 X10^3/uL (2.0-7.7); Basophil# 0.08 X10^3/uL; Basophil% 0.8 % (0-1); Eosinophil# 0.29 X10^3/uL; Eosinophils% 2.8 % (0-5); Hemoglobin 11.8 g/dL (12.0-15.0); Lymphocyte # 2.62 X10^3/ul (0.83-4.51); Mean Corp Hgb Conc 30.3 g/dL (32-36); Mean Corpuscular Hgb 24.9 pg (27.0-32.0); Mean Corpuscular Volume 82.5 fL (81-99); Mean Platelet Vol. 9.7 fl (6.2-12.0); Monocyte# 0.88 X10^3/uL; Monocyte% 8.4 % (0-10); NRBC Flagged by Analyzer 0 % (0-5); Neutrophil # 6.58 X10^3/uL (2.7-7.7); Neutrophil % 62.6 % (47-70); Platelet Count 378 K/mm3 (150-450); RBC Distribution Width CV 18.4 % (11.6-14.6); RBC Distribution Width SD 55.4 fl (35.1-43.9); Red Blood Count 4.73 M/mm3 (4.2-5.4); White Blood Count 10.5 K/mm3 (4.4-11.0)
[2023-07-20 11:16] LABS: Anion Gap 4 (5-15); BUN 12 mg/dL (7-18); BUN/Creat Ratio 14.7 RATIO (10-20); Calcium,Total 8.9 mg/dL (8.5-10.1); Chloride 108 mmol/L (98-107); Creatinine, Serum 0.82 mg/dL (0.55-1.02); EST Glomerular Filtration Rate 82 mL/min (>60); Est Glom Filt Rate - Afr Amer 99 mL/min (>60); Estimated Creatinine Clearance 88.69 ml/min; Glucose 97 mg/dL (74-106); Potassium 4.1 mmol/L (3.5-5.1); Sodium Level 138 mmol/L (136-145)
[2023-07-20 11:18] LABS: Internal QC Validated? YES +Cl - CLEAR BKGD; Pregnancy, Serum, hCG Quali. NEGATIVE Negative
[2023-07-20 12:23] LABS: Mucous, Urine 0 SEEN /hpf (<or=2+)
[2023-07-20 12:26] LABS: Color, Urine Yellow (Yellow); Glucose, Dipstick Normal (Normal); Ketone-Dipstick Negative (Negative); Leukocyte Esterase-Dipstick 100 /ul (Negative); Nitrite-Dipstick Negative (Negative); Occult Blood-Urine 250 /ul (Negative); Protein-Dipstick 30 mg/dl (Negative); Specific Gravity, Urine 1.015 (1.002-1.030); Urine Bilirubin Dipstick Negative (Negative); Urine Clarity Sl. Cloudy (Clear); Urine Urobilinogen Normal (Normal)
[2023-07-20 12:33] LABS: Bacteria 1+ /hpf (None Seen); Red Blood Cells-Urine 10-25 SEEN /hpf (0-5); Squamous Epithelial Cells - UA 10-25 SEEN /hpf (5-10); White Blood Cells 10-25 SEEN /hpf (0-5)
[2023-07-20 13:25] VITALS: BP 103/70; PULSE 60; RESP 18; O2SAT 95
== END 2023-07-20 13:59 | disposition home or self-care (01) ==
PROVIDERS: Emergency Provider Emergency Medicine; PCP Nurse Practitioner; Visit Provider Emergency Medicine
DX: M54.9 Dorsalgia, unspecified (principal); N20.0 Calculus of kidney; E78.5 Hyperlipidemia, unspecified; F17.210 Nicotine dependence, cigarettes, uncomplicated; R10.9 Unspecified abdominal pain; Z90.49 Acquired absence of other specified parts of digestive tract; Z79.899 Other long term (current) drug therapy
CPT/HCPCS: 74176; 80048; 81001; 84703; 85025; 96374; 99282; A4216

== ENCOUNTER 2023-10-11 17:52 | Emergency (ER) | payer MEDICAID, SELFPAY ==
[2023-10-11 17:53] VITALS: BP 140/82; PULSE 73; RESP 14; TEMP 36.6; O2SAT 98; BMI 40.6
--- NOTE | 2023-10-11 18:09 | CT_ITS ---
INDICATION: right flank pain EXAMINATION: CT ABDOMEN AND PELVIS WITHOUT CONTRAST - CT Abdomen And Pelvis W/O Contrast Injection TECHNIQUE: Helically acquired images were obtained of the abdomen and pelvis without oral or IV contrast. A radiation dose optimization technique was used for this scan. IV Contrast dosage and agent: None. Oral contrast: None. COMPARISON: 07/20/2023 FINDINGS: LOWER CHEST: Lung bases are clear. No cardiomegaly or pericardial effusion. LIVER: Stable hepatic granulomata. No concerning focal mass. GALLBLADDER AND BILIARY TREE: Cholecystectomy. No intra- or extrahepatic biliary ductal dilation. PANCREAS: No focal cystic or solid mass. SPLEEN: Normal size without focal cystic or solid mass. ADRENAL GLANDS: No nodules. KIDNEYS AND URETERS: Bilateral nonobstructing nephrolithiasis similar prior study. Mild left hydronephrosis and proximal hydroureter with perinephric and periureteric stranding. No obstructing ureteral calculus. PERITONEUM: No ascites or free air. BOWEL: Normal appendix. No stomach or bowel distension. Diffuse colonic underdistention without focal inflammatory bowel wall changes. LYMPH NODES: No enlarged mesenteric or retroperitoneal lymph nodes. VESSELS: Aorta is non-dilated. URINARY BLADDER: Unremarkable. REPRODUCTIVE ORGANS: No pelvic masses. Essure device present. ABDOMINAL WALL: No discrete abdominal or pelvic wall hernia. BONES: Unremarkable. CT/Abdomen/Pelvis without Cont IMPRESSION: Mild left hydronephrosis and hydroureter with both perinephric and periureteric stranding proximally. No obstructing ureteral calculus. Findings may represent recent passage of urinary calculus which is no longer present or ascending UTI. Stable bilateral nonobstructing nephrolithiasis. Electronically Signed: Jaleel Collins MD at 20:16 EST ,
--- NOTE | 2023-10-11 18:10 | EX.ED.DYSGE1 ---
HPI History of Present Illness Chief Complaint: Flank Pain Detail of Chief Complaint: Right flank pain Informant: patient Narrative Narrative: Patient presents emergency department complaint of flank pain. She has had it off and on for several months. She was seen in the emergency department for it months ago and was told might be musculoskeletal. Patient also seen by her primary care physician who apparently referred her to some sort of specialist but she works 50 hours a week and has 4 children and has not followed up. Patient states the pain has been off-and-on but is gotten worse over the last couple of days. She has had nausea but no vomiting. She denies urinary symptoms such as urgency or frequency or dysuria. She does have history of kidney stones. She rates her pain a 5 out of 10. Pain worse with certain movements. [facility] Medical History Hyperlipidemia Hyperthyroidism Home Medications buspirone 7.5 mg tablet 7.5 mg PO TID 08/25/21 [History Last Taken Unknown] lamotrigine 100 mg tablet 100 mg PO DAILY 08/25/21 [History Last Taken Unknown] atorvastatin 20 mg tablet 20 mg PO DAILY 06/11/22 [History Last Taken Unknown] metformin 500 mg tablet,extended release 24 hr 500 mg PO DAILY 06/11/22 [History Last Taken Unknown] quetiapine 50 mg tablet,extended release 24 hr 100 mg PO DAILY 06/11/22 [History Last Taken Unknown] cyclobenzaprine 10 mg tablet 10 mg PO TID PRN Muscle Spasm #15 TABLETS 07/20/23 [Rx Last Taken Unknown] hydrocodone-acetaminophen 5-325mg 5mg-325mg 1 tab PO Q6H PRN PRN Pain 3 days #12 TABLETS 07/20/23 [Rx Last Taken Unknown] cephalexin 500 mg capsule 500 mg PO Q6 #28 CAPSULES 10/11/23 [Rx Last Taken Unknown] hydrocodone-acetaminophen 5-325mg 5mg-325mg 1 tab PO Q4H PRN PRN Pain 2 days #10 TABLETS 10/11/23 [Rx Last Taken Unknown] phenazopyridine 200 mg tablet (Pyridium) 200 mg PO TID #10 tabs 10/11/23 [Rx Last Taken Unknown] Allergy/AdvReac Type Severity Reaction Status Date / Time No Known Allergies Allergy Verified 07/20/23 10:10 Surgical History Hx of cholecystectomy Social History Smoking Status: Current every day smoker tobacco type: cigarettes ROS ROS ED Review of Systems ROS Unobtainable: other Constitutional Constitutional ED: Reports lethargy; Denies chills, fever(s), sweats or weight loss Eyes Eyes: Denies blurry vision, change in vision or diplopia ENT ENT ED: Denies rhinorrhea or sore throat Cardiovascular Cardiovascular: Denies chest pain, orthopnea or racing heartbeat Respiratory/Chest Respiratory/Chest: Denies cough, dyspnea, dyspnea on exertion, orthopnea or sputum Gastrointestinal Gastrointestinal: Reports abdominal pain and nausea; Denies diarrhea or vomiting Genitourinary Genitourinary ED: Denies dysuria, hematuria or urinary frequency Musculoskeletal Musculoskeletal: Reports back pain; Denies arthralgias, myalgias or neck pain Integumentary Denies abscess, Abrasions or rash Neurologic Neurologic: Denies headache(s) or weakness Psychiatric Psychiatric: Denies anxiety, depression or suicidal thoughts Endocrine Endocrinology: Denies polydipsia, polyphagia or polyuria Hematologic/Lymphatic Hematologic/Lymphatic: Denies easy bleeding, easy bruising or lymphadenopathy Allergic/Immunologic Allergic/Immunologic ED: Denies mouth swelling, tongue swelling or urticaria EXAM Physical Exam Const Vital Signs: 10/11/23 17:53 Temperature 98 F Temperature Source Temporal Pulse Rate 73 Respiratory Rate 14 Blood Pressure 140/82 H Blood Pressure Mean 101 Pulse Ox 98 Oxygen Delivery Method Room Air Positive well nourished and well developed General Appearance ED: well developed and NAD HEENT Reports TM's clear and moist mucous membranes normocephalic and atraumatic; Negative for trauma or tenderness Tympanic Membrane ED: Yes TM's clear Eyes PERRL and EOMs intact bilaterally General Eye ED: Negative for pale conjunctiva or scleral icterus Neck no lymphadenopathy, supple and no JVD General: Negative for tenderness Chest Wall inspection of chest normal and palpation of chest normal Chest: Negative for tenderness Resp normal respiratory effort and clear to auscultation bilaterally Effort and Inspection: Negative for respiratory distress or pain with movement Auscultation: Negative for rhonchi, wheezes or diminished lung sounds Cardio regular rate, regular rhythm, S1 normal heart sound, S2 normal heart sound and no murmurs Peripheral Pulses: pulses 2+ throughout GI normal to inspection, nondistended, normoactive bowel sounds, soft to palpation, non-distended and no masses GI Narrative: The right lower quadrant with some guarding. There is no rebound, rigidity, or peritoneal signs. No mass palpated. Back/Spine no CVA tenderness and no thoracic nor lumbar tenderness Back/Spine Narrative: Unable to reproduce patient's back pain with palpation. Negative straight leg raises. Extremity normal to inspection General Extremety ED: Negative for edema General Extremity: Negative for edema Neuro oriented x3, CN's II-XII intact bilaterally, no sensory deficits noted and gait normal Sensorium / Orientation: awake, alert, oriented to person, oriented to place and oriented to time Motor Exam: strength 5/5 throughout and strength abnormal Psych mental status grossly normal Skin no rashes or lesions noted and no wounds MDM MDM MDM Narrative Medical decision making narrative: Presents with right-sided flank pain has been going on for months. Remote history of kidney stones. IV line was established. CBC with differential patient is to elevate white count of 12.6. Chemistries unremarkable. Urinalysis with signs of infection. I did order Rocephin 1 g IV and ordered a urine culture. CT scan of the abdomen pelvis showed no evidence of kidney stones but there was some hydronephrosis on the left with some perinephric and [place] ureteral stranding proximally may indicate ascending infection or recently passed kidney stone. Patient was medicated with Toradol in the department. She will be discharged home with a prescription for Keflex as well as Pyridium and a few [place] for pain. Advised to follow-up with her primary care physician within next 2 to 5 days. She is to return if worsening pain, fever, vomiting, or condition worsening way. Also suspect there may be a component of musculoskeletal pain. Lab Data Attestation: I reviewed the patient's lab results. Labs: Laboratory Results - last 24 hr 10/11/23 10/11/23 10/11/23 18:25 18:25 18:41 WBC Cancelled Corrected WBC Cancelled RBC Cancelled Hgb Cancelled Hct Cancelled MCV Cancelled MCH Cancelled MCHC Cancelled RDW Std Deviation Cancelled RDW Coeff of Felipe Cancelled Plt Count Cancelled MPV Cancelled Immature Gran % (Auto) Cancelled Neut % (Auto) Cancelled Lymph % (Auto) Cancelled Smyth % (Auto) Cancelled Eos % (Auto) Cancelled Baso % (Auto) Cancelled Absolute Neuts (auto) Cancelled Absolute Lymphs (auto) Cancelled Total Counted Cancelled Neutrophils % (Manual) Cancelled Band Neutrophils % Cancelled Lymphocytes % (Manual) Cancelled Monocytes % (Manual) Cancelled Eosinophils % (Manual) Cancelled Basophils % (Manual) Cancelled Metamyelocytes % Cancelled Myelocytes % Cancelled Promyelocytes % Cancelled Blast Cells % Cancelled Plasma Cell % (Manual) Cancelled Other Cells % Cancelled Nucleated RBC % Cancelled Nucleated RBCs/100 WBC Cancelled Differential Comment Cancelled Diff Path Review Cancelled Hypersegmented Neuts Cancelled Atypical Lymphocytes Cancelled Reactive Lymphocytes Cancelled Smudge Cells Cancelled Toxic Granulation Cancelled Toxic Vacuolation Cancelled Dohle Bodies Cancelled Minerva Rods Cancelled Platelet Estimate Cancelled Plt Morphology Comment Cancelled RBC Morphology Cancelled Cancelled Polychromasia Cancelled Hypochromasia Cancelled Poikilocytosis Cancelled Basophilic Stippling Cancelled Anisocytosis Cancelled Microcytosis Cancelled Macrocytosis Cancelled Spherocytes Cancelled Sickle Cells Cancelled Target Cells Cancelled Tear Drop Cells Cancelled Ovalocytes Cancelled Stomatocytes Cancelled [place] Bodies Cancelled Ross Cells Cancelled Bite Cells Cancelled Crenated Cell Cancelled Acanthocytes (Spur) Cancelled Rouleaux Cancelled Schistocytes Cancelled Sodium 139 Potassium 3.8 Chloride 109 H Carbon Dioxide 22.0 Anion Gap 8 BUN 14 Creatinine 0.72 Estim Creat Clear Calc 99.99 Est GFR (MDRD) Af Amer 114 Est GFR (MDRD) Non-Af 94 BUN/Creatinine Ratio 19.3 Glucose 118 H Calcium 8.7 Serum , Qual NEGATIVE Urine Color Yellow Urine Clarity Sl. Cloudy Urine pH 5.0 Ur Specific [place] 1.025 Urine Protein 100 H Urine Glucose (UA) Normal Urine Ketones 5 H Urine Occult Blood 250 H Urine Nitrite Negative Urine Bilirubin Negative Urine Urobilinogen 1 H Ur Leukocyte Esterase 500 H Urine RBC 10-25 SEEN Urine WBC 50-100 SEEN Ur Squamous Epith Cells 10-25 SEEN Amorphous Sediment 1+ URATE Urine Bacteria 1+ Urine Mucus 2+ 10/11/23 19:14 WBC 12.6 H Corrected WBC RBC 4.70 Hgb 11.7 L Hct 38.9 MCV 82.8 MCH 24.9 L MCHC 30.1 L RDW Std Deviation 46.4 H RDW Coeff of Felipe 15.5 H Plt Count 391 MPV 9.6 Immature Gran % (Auto) 0.500 Neut % (Auto) 70.3 H Lymph % (Auto) 21.3 Smyth % (Auto) 5.3 Eos % (Auto) 2.1 Baso % (Auto) 0.5 Absolute Neuts (auto) 8.9 H Absolute Lymphs (auto) 2.68 Total Counted Neutrophils % (Manual) Band Neutrophils % Lymphocytes % (Manual) Monocytes % (Manual) Eosinophils % (Manual) Basophils % (Manual) Metamyelocytes % Myelocytes % Promyelocytes % Blast Cells % Plasma Cell % (Manual) Other Cells % Nucleated RBC % 0 Nucleated RBCs/100 WBC Differential Comment Diff Path Review Hypersegmented Neuts Atypical Lymphocytes Reactive Lymphocytes Smudge Cells Toxic Granulation Toxic Vacuolation Dohle Bodies Minerva Rods Platelet Estimate Plt Morphology Comment RBC Morphology Polychromasia Hypochromasia Poikilocytosis Basophilic Stippling Anisocytosis Microcytosis Macrocytosis Spherocytes Sickle Cells Target Cells Tear Drop Cells Ovalocytes Stomatocytes [place] Bodies Ross Cells Bite Cells Crenated Cell Acanthocytes (Spur) Rouleaux Schistocytes Sodium Potassium Chloride Carbon Dioxide Anion Gap BUN Creatinine Estim Creat Clear Calc Est GFR (MDRD) Af Amer Est GFR (MDRD) Non-Af BUN/Creatinine Ratio Glucose Calcium Serum , Qual Urine Color Urine Clarity Urine pH Ur Specific [place] Urine Protein Urine Glucose (UA) Urine Ketones Urine Occult Blood Urine Nitrite Urine Bilirubin Urine Urobilinogen Ur Leukocyte Esterase Urine RBC Urine WBC Ur Squamous Epith Cells Amorphous Sediment Urine Bacteria Urine Mucus Radiography Diagnostic Testing: Clinical Impression(s) from Imaging Studies Abdomen/Pelvis CT 10/11/23 18:09 IMPRESSION: Mild left hydronephrosis and hydroureter with both perinephric and periureteric stranding proximally. No obstructing ureteral calculus. Findings may represent recent passage of urinary calculus which is no longer present or ascending UTI. Stable bilateral nonobstructing nephrolithiasis. Electronically Signed: Jaleel Collins MD at 20:16 EST , Discharge Plan Triage Chief Complaint: Flank Pain ED Provider: Jolanta Soriano Dx/Rx/DC Orders Clinical Impression: UTI (urinary tract infection), Back pain Instructions: ED Back Pain (Acute or Chronic), ED Cystitis Female Adult Prescriptions: New hydrocodone-acetaminophen [hydrocodone-acetaminophen] 5-325 mg tablet 1 tab PO Q4H PRN PRN (Reason: Pain) 2 Days Qty: 10 0RF phenazopyridine [Pyridium] 200 mg tablet 200 mg PO TID Qty: 10 0RF cephalexin [cephalexin] 500 mg capsule 500 mg PO Q6 Qty: 28 0RF No Action buspirone 7.5 mg tablet 7.5 mg PO TID lamotrigine 100 mg tablet 100 mg PO DAILY atorvastatin 20 mg tablet 20 mg PO DAILY metformin 500 mg tablet extended release 24 hr 500 mg PO DAILY quetiapine 50 mg tablet extended release 24 hr 100 mg PO DAILY Patient Comments: TAKE 2 TABLETS BY MOUTH ONCE DAILY hydrocodone-acetaminophen [hydrocodone-acetaminophen] 5-325 mg tablet 1 tab PO Q6H PRN PRN (Reason: Pain) 3 Days Qty: 12 0RF cyclobenzaprine [cyclobenzaprine] 10 mg tablet 10 mg PO TID PRN (Reason: Muscle Spasm) Qty: 15 0RF Primary Care Provider: Magda Monet CRIMINAL RESEARCH SPECIALIST Referrals: Magda Monet CRIMINAL RESEARCH SPECIALIST, CRIMINAL RESEARCH SPECIALIST-C [Primary Care Provider] - 3-5 Days Disposition Disposition: Home, Self Care
[2023-10-11] MEDS: 0.9% Normal Saline (1000mL) 1,000 ML 150 ML IV (18:34)
[2023-10-11] MEDS: Ketorolac 30 MG/ML Syringe IV (18:34)
[2023-10-11 18:40] LABS: Internal QC Validated? YES +Cl - CLEAR BKGD; Pregnancy, Serum, hCG Quali. NEGATIVE Negative
[2023-10-11 18:47] LABS: Anion Gap 8 (5-15); BUN 14 mg/dL (7-18); BUN/Creat Ratio 19.3 RATIO (10-20); Calcium,Total 8.7 mg/dL (8.5-10.1); Chloride 109 mmol/L (98-107); Creatinine, Serum 0.72 mg/dL (0.55-1.02); EST Glomerular Filtration Rate 94 mL/min (>60); Est Glom Filt Rate - Afr Amer 114 mL/min (>60); Estimated Creatinine Clearance 99.99 ml/min; Glucose 118 mg/dL (74-106); Potassium 3.8 mmol/L (3.5-5.1); Sodium Level 139 mmol/L (136-145)
[2023-10-11 18:52] LABS: Color, Urine Yellow (Yellow); Glucose, Dipstick Normal (Normal); Ketone-Dipstick 5 mg/dl (Negative); Leukocyte Esterase-Dipstick 500 /ul (Negative); Nitrite-Dipstick Negative (Negative); Occult Blood-Urine 250 /ul (Negative); Protein-Dipstick 100 mg/dl (Negative); Specific Gravity, Urine 1.025 (1.002-1.030); Urine Bilirubin Dipstick Negative (Negative); Urine Clarity Sl. Cloudy (Clear); Urine Urobilinogen 1 mg/dl (Normal)
[2023-10-11 19:30] LABS: Absolute Lymphocyte Count 2.68 X10^3/uL (0.83-4.51); Absolute Neutrophil Count 8.9 X10^3/uL (2.0-7.7); Basophil# 0.06 X10^3/uL; Basophil% 0.5 % (0-1); Eosinophil# 0.26 X10^3/uL; Eosinophils% 2.1 % (0-5); Hematocrit 38.9 % (37-47); Hemoglobin 11.7 g/dL (12.0-15.0); Lymphocyte # 2.68 X10^3/ul (0.83-4.51); Lymphocyte % 21.3 % (19-41); Mean Corp Hgb Conc 30.1 g/dL (32-36); Mean Corpuscular Hgb 24.9 pg (27.0-32.0); Mean Corpuscular Volume 82.8 fL (81-99); Mean Platelet Vol. 9.6 fl (6.2-12.0); Monocyte# 0.67 X10^3/uL; Monocyte% 5.3 % (0-10); NRBC Flagged by Analyzer 0 % (0-5); Neutrophil # 8.85 X10^3/uL (2.7-7.7); Neutrophil % 70.3 % (47-70); Platelet Count 391 K/mm3 (150-450); RBC Distribution Width CV 15.5 % (11.6-14.6); RBC Distribution Width SD 46.4 fl (35.1-43.9); White Blood Count 12.6 K/mm3 (4.4-11.0)
[2023-10-11 19:34] LABS: White Blood Cells 50-100 SEEN /hpf (0-5)
[2023-10-11 19:35] LABS: Amorphous Sediment 1+ URATE; Bacteria 1+ /hpf (None Seen); Mucous, Urine 2+ /hpf (<or=2+); Red Blood Cells-Urine 10-25 SEEN /hpf (0-5); Squamous Epithelial Cells - UA 10-25 SEEN /hpf (5-10)
[2023-10-11] MEDS: Ceftriaxone 1 GM/50 ML BAG IV (20:46)
== END 2023-10-11 21:32 | disposition home or self-care (01) ==
PROVIDERS: Emergency Provider Emergency Medicine; PCP Nurse Practitioner; Visit Provider Emergency Medicine
DX: N39.0 Urinary tract infection, site not specified (principal); F17.210 Nicotine dependence, cigarettes, uncomplicated; E78.5 Hyperlipidemia, unspecified; M54.9 Dorsalgia, unspecified; Z79.899 Other long term (current) drug therapy
CPT/HCPCS: 74176; 80048; 81001; 84703; 85025; 87086; 87088; 96361; 96365; 96375; 99283; J7030; A4216

== ENCOUNTER 2024-05-11 13:47 | Observation (INO) | payer BC, MEDICAID, SELFPAY ==
[2024-05-11 13:49] VITALS: BP 133/90; PULSE 87; RESP 18; TEMP 35.8; O2SAT 95; BMI 40.1
[2024-05-11 15:20] LABS: Internal QC Validated? YES +Cl - CLEAR BKGD; Pregnancy, Serum, hCG Quali. NEGATIVE Negative
[2024-05-11 15:23] LABS: Mucous, Urine 0 SEEN /hpf (<or=2+)
[2024-05-11 15:29] LABS: Color, Urine Brown (Yellow); Glucose, Dipstick Normal (Normal); Ketone-Dipstick 5 mg/dl (Negative); Leukocyte Esterase-Dipstick 500 /ul (Negative); Nitrite-Dipstick Positive (Negative); Occult Blood-Urine 250 /ul (Negative); Protein-Dipstick 500 mg/dl (Negative); Specific Gravity, Urine 1.025 (1.002-1.030); Urine Bilirubin Dipstick Negative (Negative); Urine Clarity Cloudy (Clear); Urine Urobilinogen 1 mg/dl (Normal)
[2024-05-11 15:39] LABS: Bacteria 2+ /hpf (None Seen); Red Blood Cells-Urine > 100 SEEN /hpf (0-5); Squamous Epithelial Cells - UA 0-5 SEEN /hpf (5-10); White Blood Cells 50-100 SEEN /hpf (0-5)
--- NOTE | 2024-05-11 15:56 | EDS_ITS ---
HPI HPI - Female History of Present Illness Chief Complaint: Flank Pain Narrative Narrative: 43-year-old female presenting with right-sided flank pain. She states it started on Saturday and it was milder but has progressively gotten worse. She noticed some blood in her urine. She has dysuria and frequency. Patient has a history of kidney stones. She states he has not seen a urologist in some time but did have lithotripsy once a long time ago in [place]. She states that the pain started before the urinary symptoms. She feels unwell off and on but the pain is constant. She has not had a fever. She has nausea without vomiting. No diarrhea or constipation. [facility] Medical History Hyperlipidemia Hyperthyroidism Home Medications ?Medication ?Instructions ?Recorded ?Last Taken ?Type buspirone 7.5 mg tablet 7.5 mg PO TID 08/25/21 Unknown History atorvastatin 20 mg tablet 20 mg PO DAILY 06/11/22 Unknown History metformin 500 mg tablet,extended 500 mg PO DAILY 06/11/22 Unknown History release 24 hr quetiapine 50 mg tablet,extended 100 mg PO DAILY 06/11/22 Unknown History release 24 hr hydrocodone-acetaminophen 5-325mg 1 tab PO Q4H PRN PRN Pain 2 days 10/11/23 Unknown Rx 5mg-325mg #10 TABLETS phenazopyridine 200 mg tablet 200 mg PO TID #10 tabs 10/11/23 Unknown Rx (Pyridium) lamotrigine 200 mg tablet 200 mg PO DAILY 05/11/24 Unknown History levothyroxine 200 mcg tablet 200 mcg PO DAILY 05/11/24 Unknown History omeprazole 40 mg capsule,delayed 40 mg PO DAILY 05/11/24 Unknown History release Allergy/AdvReac Type Severity Reaction Status Date / Time No Known Allergies Allergy Verified 05/11/24 13:49 Surgical History Hx of cholecystectomy Social History Smoking Status: Current every day smoker tobacco type: cigarettes ROS ROS ED Constitutional Constitutional ED: Denies chills, fever(s) or sweats Eyes Eyes: Denies blurry vision or change in vision ENT ENT ED: Denies ear pain or sore throat Cardiovascular Cardiovascular: Denies chest pain, palpitations or racing heartbeat Respiratory/Chest Respiratory/Chest: Denies cough, dyspnea or sputum Gastrointestinal Gastrointestinal: Reports abdominal pain; Denies constipation, diarrhea, nausea or vomiting Genitourinary Genitourinary ED: Denies dysuria, hematuria or urinary frequency Musculoskeletal Musculoskeletal: Denies arthralgias, myalgias or neck pain Integumentary Denies abscess, Abrasions or rash Neurologic Neurologic: Denies headache(s), paresthesias or weakness Psychiatric Psychiatric: Denies anxiety, depression, suicidal ideation or suicidal thoughts Endocrine Endocrinology: Denies polydipsia or polyuria EXAM Physical Exam Const Vital Signs: 05/11/24 13:49 05/11/24 16:12 05/11/24 16:12 Temperature 96.5 F L 97.3 F L Temperature Source Temporal Temporal Pulse Rate 87 68 68 Respiratory Rate 18 18 18 Blood Pressure 133/90 H 116/78 116/78 Blood Pressure Mean 104 90 90 Pulse Ox 95 100 100 Oxygen Delivery Method Room Air Room Air Room Air Positive well nourished General Appearance ED: NAD HEENT Reports moist mucous membranes Eyes PERRL and EOMs intact bilaterally Resp normal respiratory effort Cardio regular rate and regular rhythm GI Palpation: tender RLQ Back/Spine General Back: CVA tenderness right Extremity normal to inspection Neuro oriented x3 Sensorium / Orientation: alert Motor Exam: strength 5/5 throughout Skin no rashes or lesions noted MDM MDM MDM Narrative Medical decision making narrative: Patient presenting with right-sided flank pain history of kidney stones. She has dysuria and urinary frequency. Differential includes UTI, pyelonephritis, kidney stone, dehydration, anemia, electrolyte abnormalities. CBC will be obtained to assess white blood cell count, hemoglobin, platelets. BMP to assess renal function and electrolytes. Urinalysis to assess for blood and urinary tract infection. Patient medicated with morphine and Zofran. He was given IV fluids. CBC shows normal white blood cell count 10.0. Hemoglobin 12.1. Platelets are normal at 427. Renal function and electrolytes unremarkable. hCG negative. Urinalysis consistent with infection. Given the patient's flank pain and a CT that shows a 10 mm obstructing ureteral calculi I feel the patient should come in. The patient is amenable to this. Discussed with Dr. Mercado who will place a stent. Patient was given Rocephin IV. Impression: 1. 10 mm UPJ stone 2. Pyelonephritis Lab Data Attestation: I reviewed the patient's lab results. Labs: Laboratory Results - last 24 hr 05/11/24 05/11/24 14:30 15:12 WBC 10.0 RBC 4.65 Hgb 12.1 Hct 37.4 MCV 80.4 L MCH 26.0 L MCHC 32.4 RDW Std Deviation 43.7 RDW Coeff of Felipe 14.9 H Plt Count 427 MPV 9.4 Immature Gran % (Auto) 0.200 Neut % (Auto) 62.0 Lymph % (Auto) 29.2 [place] % (Auto) 5.2 Eos % (Auto) 2.8 Baso % (Auto) 0.6 Absolute Neuts (auto) 6.2 Absolute Lymphs (auto) 2.92 Nucleated RBC % 0 Sodium 138 Potassium 4.0 Chloride 105 Carbon Dioxide 27.0 Anion Gap 6 BUN 13 Creatinine 0.90 Estim Creat Clear Calc 108.31 Est GFR (MDRD) Af Amer 88 Est GFR (MDRD) Non-Af 73 BUN/Creatinine Ratio 14.4 Glucose 89 Calcium 9.0 Serum , Qual NEGATIVE Urine Color Brown Urine Clarity Cloudy Urine pH 5.0 Ur Specific [place] 1.025 Urine Protein 500 H Urine Glucose (UA) Normal Urine Ketones 5 H Urine Occult Blood 250 H Urine Nitrite Positive H Urine Bilirubin Negative Urine Urobilinogen 1 H Ur Leukocyte Esterase 500 H Urine RBC > 100 SEEN Urine WBC 50-100 SEEN Ur Squamous Epith Cells 0-5 SEEN Urine Bacteria 2+ Urine Mucus 0 SEEN Radiography Diagnostic Testing: Clinical Impression(s) from Imaging Studies Abdomen/Pelvis CT 05/11/24 16:18 IMPRESSION: 10 mm obstructing stone at the left ureteropelvic junction with mild hydronephrosis. Electronically Signed: Ryley Pagan MD at 17:10 EDT , Discharge Plan Disposition Disposition: Acute Care Hospital [facility] Discharge Date/Time: 05/11/24 18:31
[2024-05-11] MEDS: Morphine 4 MG/ML Syringe IV (16:05)
[2024-05-11] MEDS: Ondansetron 4 MG/2 ML Vial IV (16:05)
[2024-05-11] MEDS: 0.9% Normal Saline (1000mL) 1,000 ML 999 ML IV (16:06)
[2024-05-11 16:12] VITALS: BP 116/78; PULSE 68; RESP 18; TEMP 36.3; O2SAT 100
--- NOTE | 2024-05-11 16:18 | CT_ITS ---
STUDY: CT ABDOMEN AND PELVIS WITHOUT CONTRAST REASON FOR EXAM: Female, 43 years old. flank pain RADIATION DOSAGE (If Supplied By Facility): CTDIvol = ( 23.82 ) mGy, DLP = ( 1446.46 ) mGycm TECHNIQUE: Transaxial images were obtained from the dome of the diaphragm to the symphysis pubis without oral contrast, and without intravenous contrast. Sagittal and coronal images were reconstructed. Individualized dose optimization techniques were used for this CT. COMPARISON: 10/11/2023 FINDINGS: The visualized lung bases are unremarkable. The visualized portions of the heart are within normal limits. Normal liver. There are surgical clips in the gallbladder fossa consistent with a prior cholecystectomy. Normal spleen. Normal pancreas. Normal bilateral adrenal glands. Multiple bilateral nonobstructing renal stones. 8 mm nonobstructing stone in the right renal pelvis. 10 mm obstructing stone at the left ureteropelvic junction with mild hydronephrosis. Normal visualized stomach. Normal small intestine. Normal colon. The appendix is visualized and appears normal. Normal abdominal aorta. Normal inferior vena cava. Normal retroperitoneum. Normal urinary bladder. Normal abdominal wall. Normal osseous structures. CT/Abdomen/Pelvis without Cont IMPRESSION: 10 mm obstructing stone at the left ureteropelvic junction with mild hydronephrosis. Electronically Signed: Ryley Pagan MD at 17:10 EDT ,
[2024-05-11 16:23] LABS: Absolute Lymphocyte Count 2.92 X10^3/uL (0.83-4.51); Absolute Neutrophil Count 6.2 X10^3/uL (2.0-7.7); Basophil# 0.06 X10^3/uL; Basophil% 0.6 % (0-1); Eosinophil# 0.28 X10^3/uL; Eosinophils% 2.8 % (0-5); Hematocrit 37.4 % (37-47); Hemoglobin 12.1 g/dL (12.0-15.0); Lymphocyte # 2.92 X10^3/ul (0.83-4.51); Lymphocyte % 29.2 % (19-41); Mean Corp Hgb Conc 32.4 g/dL (32-36); Mean Corpuscular Volume 80.4 fL (81-99); Mean Platelet Vol. 9.4 fl (6.2-12.0); Monocyte# 0.52 X10^3/uL; Monocyte% 5.2 % (0-10); NRBC Flagged by Analyzer 0 % (0-5); Neutrophil # 6.21 X10^3/uL (2.7-7.7); Platelet Count 427 K/mm3 (150-450); RBC Distribution Width CV 14.9 % (11.6-14.6); RBC Distribution Width SD 43.7 fl (35.1-43.9); Red Blood Count 4.65 M/mm3 (4.2-5.4)
[2024-05-11] MEDS: Ceftriaxone 1 GM/50 ML BAG IV (17:41)
[2024-05-11 17:49] LABS: Anion Gap 6 (5-15); BUN 13 mg/dL (7-18); BUN/Creat Ratio 14.4 RATIO (10-20); Chloride 105 mmol/L (98-107); EST Glomerular Filtration Rate 73 mL/min (>60); Est Glom Filt Rate - Afr Amer 88 mL/min (>60); Estimated Creatinine Clearance 108.31 ml/min; Glucose 89 mg/dL (74-106); Sodium Level 138 mmol/L (136-145)
[2024-05-11 18:29] VITALS: PULSE 77; RESP 16; O2SAT 98
[2024-05-11 18:44] VITALS: BMI 41.0
[2024-05-11 18:51] VITALS: BP 129/83; PULSE 52; RESP 16; TEMP 36.4; O2SAT 99
[2024-05-11] MEDS: Lactated Ringers 1,000 ML 125 ML IV (20:55)
[2024-05-11] MEDS: busPIRone 15 MG TABLET 7.5 MG PO (20:56)
[2024-05-11] MEDS: Ketorolac 15 MG/ML Vial IV (20:57)
[2024-05-11] MEDS: Acetaminophen 500 MG Tablet 1000 MG PO (20:57)
[2024-05-11] MEDS: oxyCODONE 5 MG Tablet 10 MG PO (20:57)
[2024-05-11] MEDS: Phenazopyridine 95 MG Tablet 190 MG PO (20:57)
[2024-05-11] MEDS: Cefazolin 1 GM/50 ML BAG IV (21:00)
[2024-05-11 22:39] VITALS: BP 100/72; PULSE 60; RESP 16; TEMP 36.7; O2SAT 96
[2024-05-11] MEDS: lamoTRIgine 100 MG Tablet 200 MG PO (22:42)
[2024-05-11] MEDS: QUEtiapine 25 MG Tablet 50 MG PO (22:42)
[2024-05-12] VITALS (12 sets, daily range): BP systolic 95–150; BP diastolic 58–84; PULSE 49–91; RESP 16–18; TEMP 36.5–36.7; O2SAT 94–100; BMI 41.0
--- NOTE | 2024-05-12 01:18 | EKG12_ITS ---
Test Reason : PRE-OP Blood Pressure : / mmHG Vent. Rate : 051 BPM Atrial Rate : 051 BPM P-R Int : 168 ms QRS Dur : 082 ms QT Int : 482 ms P-R-T Axes : 042 006 042 degrees QTc Int : 444 ms Sinus bradycardia Otherwise normal ECG When compared with ECG of 11-JUN-2022 12:34, Nonspecific T wave abnormality, improved in Anterolateral leads QT has lengthened Confirmed by CASSI PARKER, ROBERT ([id number]), visual effects editor ABBI MILLAN ([id number]) on 05/13/2024 10:09:38 AM Referred By: SANAZ Confirmed By:NEIL YE MD
[2024-05-12] MEDS: Lactated Ringers 1,000 ML 125 ML IV ×2 (05:01→14:19)
[2024-05-12] MEDS: Ketorolac 15 MG/ML Vial IV (05:05)
[2024-05-12] MEDS: Cefazolin 1 GM/50 ML BAG IV ×2 (06:20→14:33)
[2024-05-12 07:01] LABS: Absolute Lymphocyte Count 3.18 X10^3/uL (0.83-4.51); Absolute Neutrophil Count 4.3 X10^3/uL (2.0-7.7); Basophil# 0.07 X10^3/uL; Basophil% 0.8 % (0-1); Eosinophil# 0.32 X10^3/uL; Eosinophils% 3.8 % (0-5); Hematocrit 32.9 % (37-47); Hemoglobin 10.2 g/dL (12.0-15.0); Lymphocyte # 3.18 X10^3/ul (0.83-4.51); Lymphocyte % 37.6 % (19-41); Mean Corpuscular Hgb 25.4 pg (27.0-32.0); Monocyte# 0.62 X10^3/uL; Monocyte% 7.3 % (0-10); NRBC Flagged by Analyzer 0 % (0-5); Neutrophil # 4.25 X10^3/uL (2.7-7.7); Neutrophil % 50.3 % (47-70); Platelet Count 347 K/mm3 (150-450); RBC Distribution Width CV 14.9 % (11.6-14.6); RBC Distribution Width SD 44.9 fl (35.1-43.9); Red Blood Count 4.01 M/mm3 (4.2-5.4); White Blood Count 8.5 K/mm3 (4.4-11.0)
[2024-05-12 07:57] LABS: Anion Gap 4 (5-15); BUN 14 mg/dL (7-18); BUN/Creat Ratio 18.1 RATIO (10-20); Calcium,Total 8.1 mg/dL (8.5-10.1); Chloride 109 mmol/L (98-107); Creatinine, Serum 0.78 mg/dL (0.55-1.02); EST Glomerular Filtration Rate 87 mL/min (>60); Est Glom Filt Rate - Afr Amer 105 mL/min (>60); Estimated Creatinine Clearance 126.61 ml/min; Glucose 100 mg/dL (74-106); Potassium 3.8 mmol/L (3.5-5.1); Sodium Level 140 mmol/L (136-145)
--- NOTE | 2024-05-12 08:25 | HP.PCM_ITS ---
HPI - General General Date of Admission: 05/11/24 Date of Service: 05/12/24 Chief Complaint: Right flank pain HPI Narrative TANYA HOOVER, is a 43 F who presented to the emergency room yesterday after having 5 to 6 days of severe right-sided flank discomfort along with intermittent left-sided flank pain. She also has had nausea and vomiting. She reports that she did not have any dysuria until the last couple of days and she has also had gross hematuria. She has a history of kidney stones in the past and has had shockwave lithotripsy with a ureteral stent. [facility] Medical History Substance abuse Anxiety Depression Bipolar disorder Hypothyroidism Smoker CPAP (continuous positive airway pressure) dependence Sleep apnea Hyperlipidemia Hyperthyroidism Home Medications ?Medication ?Instructions ?Recorded ?Last Taken ?Type atorvastatin 20 mg tablet 20 mg PO DAILY 06/11/22 Unknown History metformin 500 mg tablet,extended 500 mg PO DAILY 06/11/22 Unknown History release 24 hr quetiapine 50 mg tablet,extended 100 mg PO DAILY Sleep 06/11/22 Unknown History release 24 hr buspirone 10 mg tablet 10 mg PO TID Anxiety 05/11/24 Unknown History lamotrigine 200 mg tablet 200 mg PO DAILY 05/11/24 Unknown History levothyroxine 200 mcg tablet 200 mcg PO DAILY 05/11/24 Unknown History omeprazole 40 mg capsule,delayed 40 mg PO DAILY 05/11/24 Unknown History release Allergy/AdvReac Type Severity Reaction Status Date / Time No Known Allergies Allergy Verified 05/11/24 13:49 Surgical History Hx of cholecystectomy Social History Smoking Status: Current every day smoker tobacco type: cigarettes ROS Constitutional Constitutional: Denies chills or fever(s) Eyes Eyes: Reports systems reviewed and no addt'l complaints, except as documented ENT HEENT: Reports systems reviewed and no addt'l complaints, except as documented Cardiovascular Cardiovascular: Denies chest pain, diaphoresis or dyspnea Respiratory/Chest Respiratory/Chest: Denies chest tightness, cough or dyspnea Gastrointestinal Gastrointestinal: Reports abdominal pain, nausea and vomiting Genitourinary Genitourinary: Reports dysuria, flank pain and hematuria Musculoskeletal Musculoskeletal: Reports back pain Integumentary Integumentary: Reports systems reviewed and no addt'l complaints, except as documented Neurologic Neurologic: Reports systems reviewed and no addt'l complaints, except as documented Psychiatric Psychiatric: Reports systems reviewed and no addt'l complaints, except as documented Endocrine Endocrinology: Reports systems reviewed and no addt'l complaints, except as documented Hematologic/Lymphatic Hematologic/Lymphatic: Reports systems reviewed and no addt'l complaints, except as documented Allergic/Immunologic Allergic/Immunologic: Reports systems reviewed and no addt'l complaints, except as documented Vital Signs Vital Signs Vital Signs: 05/11/24 13:49 05/11/24 16:12 05/11/24 16:12 Temperature 96.5 F L 97.3 F L Temperature Source Temporal Temporal Pulse Rate 87 68 68 Respiratory Rate 18 18 18 Respiratory Effort Respiratory Depth Respiratory Pattern Blood Pressure 133/90 H 116/78 116/78 Blood Pressure Mean 104 90 90 Blood Pressure Source Blood Pressure Position Blood Pressure Location Pulse Ox 95 100 100 Oxygen Delivery Method Room Air Room Air Room Air 05/11/24 18:29 05/11/24 18:51 05/11/24 18:52 Temperature 97.5 F L Temperature Source Oral Pulse Rate 77 52 L Respiratory Rate 16 16 Respiratory Effort Normal Respiratory Depth Normal Respiratory Pattern Normal Blood Pressure 129/83 H Blood Pressure Mean 98 Blood Pressure Source Monitor Blood Pressure Position Semi-Fowlers Blood Pressure Location Right Arm Pulse Ox 98 99 Oxygen Delivery Method Room Air Room Air Room Air 05/11/24 22:39 05/11/24 22:39 05/12/24 04:59 Temperature 98.1 F 97.9 F Temperature Source Oral Temporal Pulse Rate 60 62 Respiratory Rate 16 16 Respiratory Effort Normal Non-Labored Respiratory Depth Normal Respiratory Pattern Normal Blood Pressure 100/72 96/58 L Blood Pressure Mean 81 70 Blood Pressure Source Monitor Monitor Blood Pressure Position Supine Semi-Fowlers Blood Pressure Location Right Arm Right Arm Pulse Ox 96 95 Oxygen Delivery Method Room Air Room Air Room Air Weight Weight: 118.841 kg Body Mass Index (BMI) 41.0 Physical Exam Const alert, oriented x3 and no apparent distress HEENT normocephalic, head/scalp atraumatic, hearing grossly normal bilaterally, external ears normal and external nose normal Eyes General Eye: normal appearance of both eyes Neck supple General: normal visual inspection and trachea midline Lymph Lymphatic: no lymphedema noted Chest inspection of chest normal Resp normal respiratory effort, normal air movement and no retractions Cardio regular rate GI soft to palpation, non-tender and non-distended Bladder / Kidney Exam: CVA tenderness right and left Extremity normal to inspection Skin no rashes or lesions noted, skin turgor normal, no jaundice, no petechiae and no mottling Neuro oriented x3, CN's II-XII intact bilaterally and moves all extremities Psych mental status grossly normal and thought process normal Results Lab / Micro Data 05/12/24 06:31 05/12/24 06:31 Labs: Laboratory Results - last 24 hr 05/11/24 14:30: WBC 10.0, RBC 4.65, Hgb 12.1, Hct 37.4, MCV 80.4 L, MCH 26.0 L, MCHC 32.4, RDW Std Deviation 43.7, RDW Coeff of Felipe 14.9 H, Plt Count 427, MPV 9.4, Immature Gran % (Auto) 0.200, Neut % (Auto) 62.0, Lymph % (Auto) 29.2, [place] % (Auto) 5.2, Eos % (Auto) 2.8, Baso % (Auto) 0.6, Absolute Neuts (auto) 6.2, Absolute Lymphs (auto) 2.92, Nucleated RBC % 0, Sodium 138, Potassium 4.0, Chloride 105, Carbon Dioxide 27.0, Anion Gap 6, BUN 13, Creatinine 0.90, Estim Creat Clear Calc 108.31, Est GFR (MDRD) Af Amer 88, Est GFR (MDRD) Non-Af 73, BUN/Creatinine Ratio 14.4, Glucose 89, Calcium 9.0, Serum , Qual NEGATIVE 05/11/24 15:12: Urine Color Brown, Urine Clarity Cloudy, Urine pH 5.0, Ur Specific [place] 1.025, Urine Protein 500 H, Urine Glucose (UA) Normal, Urine Ketones 5 H, Urine Occult Blood 250 H, Urine Nitrite Positive H, Urine Bilirubin Negative, Urine Urobilinogen 1 H, Ur Leukocyte Esterase 500 H, Urine RBC > 100 SEEN, Urine WBC 50-100 SEEN, Ur Squamous Epith Cells 0-5 SEEN, Urine Bacteria 2+, Urine Mucus 0 SEEN 05/12/24 06:31: WBC 8.5, RBC 4.01 L, Hgb 10.2 L, Hct 32.9 L, MCV 82.0, MCH 25.4 L, MCHC 31.0 L, RDW Std Deviation 44.9 H, RDW Coeff of Felipe 14.9 H, Plt Count 347, MPV 9.0, Immature Gran % (Auto) 0.200, Neut % (Auto) 50.3, Lymph % (Auto) 37.6, [place] % (Auto) 7.3, Eos % (Auto) 3.8, Baso % (Auto) 0.8, Absolute Neuts (auto) 4.3, Absolute Lymphs (auto) 3.18, Nucleated RBC % 0, Sodium 140, Potassium 3.8, Chloride 109 H, Carbon Dioxide 27.0, Anion Gap 4 L, BUN 14, Creatinine 0.78, Estim Creat Clear Calc 126.61, Est GFR (MDRD) Af Amer 105, Est GFR (MDRD) Non-Af 87, BUN/Creatinine Ratio 18.1, Glucose 100, Calcium 8.1 L Imaging Radiology Impression Abdomen/Pelvis CT 05/11/24 16:18 IMPRESSION: 10 mm obstructing stone at the left ureteropelvic junction with mild hydronephrosis. Electronically Signed: Ryley Pagan MD at 17:10 EDT , Report and images were reviewed. She has partially obstructing stones with mild hydronephrosis at the level of the UPJ bilaterally. Assessment & Plan Assessment/Plan (1) Kidney stone: (2) Leukocytosis: (3) UTI (urinary tract infection): PLAN: Plan We will proceed with cystoscopy and bilateral ureteral stent insertion with treatment for her stones over the course of the next several weeks. The risks, benefits and alternatives were discussed with the patient and she agrees to proceed. Continue antibiotic coverage and supportive care. Await results of urine culture.
--- NOTE | 2024-05-12 11:40 | PCM.PRE.AN2 ---
ASA Classification* ASA Classification ASA Classification: 2 Assessment & Plan Anesthesia* Anesthesia Assessment Anesthesia Assessment: Discussed sedation and/or anesthesia options, risks, benefits, and alternatives with patient/parents/legal guardian/POA. Questions invited. The patient/parents/legal guardian/POA seems to understand and agrees to proceed with anesthesia plan. Reviewed the physical assessment, medical history, allergy history and patient home medications list prior to surgery/procedure/anesthetic and documented any changes. Performed airway and anesthesia risk assessments. Anesthesia Type Anesthesia Type: MAC History Source History Obtained from:: Patient and Chart Anesthesia Focused Assessment* Temperature: 97.8 F Pulse Rate: 76 Blood Pressure: 119/76 Respiratory Rate: 16 Pulse Ox: 98 Oxygen Delivery Method: Room Air Airway Assessment Mouth opens: >3 cm Mallampati Score: II Teeth Condition: Chipped/Broken (Multiple chipped and broken teeth. No teeth loose at the moment.) Neck Range of motion (ROM): Full ROM Focused Labs Anesthesia Preop lab: CBC WBC 8.5 K/mm3 (4.4-11.0) 05/12/24 06:31 RBC 4.01 M/mm3 (4.2-5.4) L 05/12/24 06:31 Hgb 10.2 g/dL (12.0-15.0) L 05/12/24 06:31 Hct 32.9 % (37-47) L 05/12/24 06:31 Plt Count 347 K/mm3 (150-450) 05/12/24 06:31 CHEMISTRY Potassium 3.8 mmol/L (3.5-5.1) 05/12/24 06:31 Sodium 140 mmol/L (136-145) 05/12/24 06:31 Magnesium 2.5 mg/dL (1.6-2.6) 06/11/22 12:37 BUN 14 mg/dL (7-18) 05/12/24 06:31 Creatinine 0.78 mg/dL (0.55-1.02) 05/12/24 06:31 Glucose 100 mg/dL (74-106) 05/12/24 06:31 TSH Pending 05/12/24 06:31 COAG Urine Test Negative Negative 08/25/21 14:24 Pre-Assessment Diagnosis/Proposed Procedure Planned Operative Procedure(s): Cystoscopy with bilateral ureteral stent insertions Anesthesia History 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 When Was Last Pacemaker Check QUESTION #4 FULL TEXT: You/Your Family Experience fever (hyperthermia) with Anesthesia Last Oral Intake Last Oral intake: Last Oral Intake NPO since 12:00 05/12/24 09:42 Meds taken in AM with sips of No 05/12/24 09:42 water? Meds patient instructed to take am of surgery PONV PONV - storage wharfage clerk: PONV - storage wharfage clerk Female HX of Motion Sickness HX of N/V After Surgery Non-Smoker Duration of Surgery greater than 60 minutes Number of Risk Factors PONV Score Height & Weight Height & Weight: Anesthesia: Height & Weight Height 5 ft 7 in 05/12/24 09:42 Weight: 118.841 kg 05/12/24 09:42 Body Mass Index (BMI) 41.0 05/12/24 09:42 Respiratory Assessment Respiratory Assessment - storage wharfage clerk: Respiratory Tract Infection Hx - storage wharfage clerk Hx Respiratory Tract Infection No 05/12/24 01:08 STOP Sleep Apnea STOP Sleep Apnea - storage wharfage clerk: STOP Sleep Apnea - storage wharfage clerk Hx Hypertension No 05/11/24 18:44 Hx Sleep Apnea Yes 05/11/24 18:44 CPAP Yes 05/11/24 18:44 BIPAP No 05/11/24 18:44 Do you snore loudly (louder No 05/11/24 18:44 than talking or can be heard Do you often feel tired/ fatigued/ sleepy during daytime? Has anyone observed you stop breathing during sleep? STOP Results Positive 05/11/24 18:44 QUESTION #5 FULL TEXT : Do you snore loudly (louder than talking or can be heard through closed doors)? Tobacco Use History Tobacco Use History - storage wharfage clerk: Tobacco Use History - storage wharfage clerk Tobacco Use Smoking Status Current every day smoker 05/11/24 18:44 Hx Tobacco Use Yes 05/11/24 18:44 Years Smoking 20 05/11/24 18:44 Packs Smoked per Day 1 05/11/24 18:44 Smoking Cessation Date was within the last 15 years Hx Smoking Cessation Date Hx Smoking Cessation Counseling Hematologic Medial History Hematologic Hx - storage wharfage clerk: Hematologic Medical Hx - extractor loader and unloader Hx of Blood Transfusion No 05/11/24 18:44 Hx of Transfusion in last 3 No 05/11/24 18:44 Months Date of Last Transfusion (if within last 3 months) Ever experience any problems No 05/11/24 18:44 with transfusion(s)? Specify any problems Hx of Preganancy in last 3 N/A 05/11/24 18:44 Months Nurse Filling Out Transfusion TWOLF 05/11/24 18:44 & Questions: Date: 05/11/24 05/11/24 18:44 Time: 18:45 05/11/24 18:44 Patient unable to answer at this time (ie. confused, unrespo /Reproduction History /Reproductive History - storage wharfage clerk: /Reproductive Hx- storage wharfage clerk Hx Now No 05/12/24 01:08 Gestational Age (in weeks): EDC: Hx Hx Para Hx Section SAB No 05/12/24 01:08 Active Medications Active Medications: Current Medications Generic Name Dose Route Start Last Admin Trade Name Freq PRN Reason Stop Dose Admin Acetaminophen 1,000 mg 05/11/24 22:00 05/12/24 06:21 Acetaminophen 500 Mg Tablet PO Not Given Q8 FRANCK Atorvastatin Calcium 20 mg 05/12/24 10:00 Atorvastatin Calcium 20 Mg Tablet PO DAILY FRANCK Buspirone HCl 7.5 mg 05/11/24 22:00 05/12/24 06:21 Buspirone 15 Mg Tablet PO Not Given TID FRANCK Glucagon 1 mg 05/11/24 19:35 Glucagon 1 Mg/Ml Syringe IM X1 PRN HYPOGLYCEMIA Protocol Sodium Chloride 250 mls @ 15 mls/hr 05/11/24 18:37 IV .[id number] PRN Additional IVPB Infusion Sodium Chloride 250 mls @ 15 mls/hr 05/11/24 18:37 IV .[id number] PRN Saline Flush Lactated Ringer's 1,000 mls @ 125 mls/hr 05/11/24 19:45 05/12/24 05:01 IV 125 mls/hr .Q8H FRANCK Administration Cefazolin Sodium 1 gm in 50 mls @ 100 mls/hr 05/11/24 22:00 05/12/24 07:31 IV Infused Q8 FRANCK Infusion Ketorolac Tromethamine 15 mg 05/11/24 19:40 05/12/24 05:05 Ketorolac 15 Mg/Ml Vial IV 05/16/24 19:41 15 mg Q6H PRN PRN Administration Pain Score 1-10 Lamotrigine 200 mg 05/12/24 10:00 05/11/24 22:42 Lamotrigine 100 Mg Tablet PO 200 mg DAILY [facility] Administration Levothyroxine Sodium 200 mcg 05/12/24 06:00 05/12/24 06:21 Levothyroxine 100 Mcg Tablet PO Not Given DAILY@0600 [facility] Melatonin 3 mg 05/11/24 19:40 Melatonin 3 Mg Tablet PO QHS PRN PRN INSOMNIA Metformin HCl 500 mg 05/12/24 08:00 [facility] Sulfate 2 - 4 mg 05/11/24 19:40 Morphine 2 Mg/Ml Syringe IV Q3H PRN PRN Pain Score 6-10 Nicotine 21 mg 05/11/24 19:25 05/11/24 19:43 Nicotine 21 Mg Patch TD 21 mg DAILY [facility] Administration Ondansetron HCl 4 mg 05/11/24 19:35 Ondansetron 4 Mg/2 Ml Vial IV Q8H PRN PRN NAUSEA/VOMITING Oxycodone HCl 10 mg 05/11/24 19:40 05/11/24 20:57 Oxycodone 5 Mg Tablet PO 10 mg Q4H PRN PRN Administration Pain Score 4-10 Pantoprazole Sodium 40 mg 05/12/24 10:00 Pantoprazole Sodium 40 Mg Tablet PO DAILY [facility] Phenazopyridine HCl 190 mg 05/11/24 22:00 05/12/24 06:21 Phenazopyridine 95 Mg Tablet PO Not Given TID FRANCK Prochlorperazine Edisylate 5 mg 05/11/24 19:40 Prochlorperazine 10 Mg/2 Ml Vial IV Q4H PRN PRN Breakthrough nausea/vomiting Quetiapine Fumarate 50 mg 05/12/24 10:00 05/11/24 22:42 Quetiapine 25 Mg Tablet PO 50 mg BID FRANCK Administration Sodium Chloride 10 - 40 ml 05/11/24 18:37 0.9% Saline Lock 10 Ml Syringe IV UD PRN SALINE FLUSH PFSH Medical History Substance abuse Anxiety Depression Bipolar disorder Hypothyroidism Smoker CPAP (continuous positive airway pressure) dependence Sleep apnea Hyperlipidemia Hyperthyroidism Home Medications ?Medication ?Instructions ?Recorded ?Last Taken ?Type atorvastatin 20 mg tablet 20 mg PO DAILY 06/11/22 Unknown History metformin 500 mg tablet,extended 500 mg PO DAILY 06/11/22 Unknown History release 24 hr quetiapine 50 mg tablet,extended 100 mg PO DAILY Sleep 06/11/22 Unknown History release 24 hr buspirone 10 mg tablet 10 mg PO TID Anxiety 05/11/24 Unknown History lamotrigine 200 mg tablet 200 mg PO DAILY 05/11/24 Unknown History levothyroxine 200 mcg tablet 200 mcg PO DAILY 05/11/24 Unknown History omeprazole 40 mg capsule,delayed 40 mg PO DAILY 05/11/24 Unknown History release Allergy/AdvReac Type Severity Reaction Status Date / Time No Known Allergies Allergy Verified 05/11/24 13:49 Surgical History Hx of cholecystectomy Social History Smoking Status: Current every day smoker tobacco type: cigarettes Review of Systems (Anesthesia) ROS Narrative System reviewed and no additional complaints, except as documented.
[2024-05-12] MEDS: Lactated Ringers 1,000 ML 15 ML IV (11:45)
--- NOTE | 2024-05-12 12:25 | OP.PCM_ITS ---
Report of Operation Date of Procedure: 05/12/24 Pre-Operative Diagnosis: Bilateral renal stones with hydronephrosis and intract able flank pain, urinary tract infection Post-Operative Diagnosis: Same Surgery/Procedure Performed:: Cystoscopy with bilateral ureteral stent insertion Surgeon: Sana Mercado Type of Anesthesia: MAC Description of Procedure: The patient is a 43-year-old female with a history of stones who presented to the emergency room with intractable right flank pain. She was found to have large bilateral renal pelvic stones with hydronephrosis bilaterally and admitted to intermittent left flank pain as well. Her urine appeared to be infected. She now presents for cystoscopy with bilateral ureteral stent insertion. Informed consent was obtained. She was taken the operating room and placed on the operating room table. Anesthesia monitored the head, neck, airway, IV access and vital signs throughout the case. Once anesthesia was appropriate ministered, she was placed into dorsolithotomy position and was prepped and draped in usual sterile fashion. The cystoscope was inserted through the urethra under direct visualization into the urinary bladder. The bladder mucosa was visualized in its entirety revealing no evidence of mass, erythema, ulceration or foreign body. A 0.035 Glidewire was then used to cannulate the right ureteral orifice advanced easily into the renal pelvis. A 4.5 [place] by 28 cm stent was selected secondary to her history of not tolerating stents well in the past. There was good placement in the renal pelvis as well as the urinary bladder and the Glidewire was removed. This process was repeated on the patient's left side with same findings. At this time the patient's bladder was emptied and the cystoscope was removed. She was awakened and taken to the recovery room in good condition. There were no complications during this procedure. Grafts/Implants Used: 4.5 [place] by 28 cm JJ stents x 2 Complications None Admit VTE Documentation VTE Present on Admission: Yes VTE Mechan Device Prophylaxis: SCD's VTE Pharm Prophylaxis ordered?: No Reason prophylaxis not ordered:: Treatment Not Indicated
--- NOTE | 2024-05-12 13:07 | PCM.POST.ANE ---
Anesthesia: Postop Eval I Current Vital Signs Temperature: 97.7 F Pulse Rate: 52 Blood Pressure: 96/65 Respiratory Rate: 16 Pulse Ox: 98 Oxygen Delivery Method: Room Air Assessment Airway patent: Yes Spontaneous unlabored respirations: Yes Mental status: Awake and Calm nausea: No Vomiting: No Anesthesia Complication: No Fluid Hydration Crystalloid volume administer (ml): 200 Total IV fluid infused: 200 Progress Note Anesthesia document: Postop Eval 1 completed: Yes
[2024-05-12 13:15] LABS: Hemoglobin A1c 5.6 % (3.8-5.6)
--- NOTE | 2024-05-12 13:21 | PCM.POSTANE2 ---
Anesthesia Postop Eval I Sum Postop Eval Completion status Anesthesia document: Postop Eval 1 completed: Yes Anesthesia Postop Eval I Summary Anesthesia Postop Eval I Summary: Anesthesia Postop Eval I: Assessment Summary Airway patent Yes 05/12/24 13:09 Spontaneous unlabored Yes 05/12/24 13:09 respirations Mental status Awake,Calm 05/12/24 13:09 nausea No 05/12/24 13:09 Vomiting No 05/12/24 13:09 Anesthesia Postop Eval I: Fluid Summary Crystalloid volume administer 200 05/12/24 13:09 (ml) Colloids volume administered ( ml) Blood Product volume administered (ml) Total IV fluid infused 200 05/12/24 13:11 Anesthesia Postop Eval I: Summary Notes Anesthesia Complication No 05/12/24 13:09 Anesthesia Complication Comment: Post-operative progress note Anesthesia: Postop Eval II Evaluation Mental status: Awake Pain Level: 0 nausea: No Vomiting: No Complications Anesthesia Complication: No
[2024-05-12] MEDS: busPIRone 15 MG TABLET 7.5 MG PO (14:18)
[2024-05-12] MEDS: Phenazopyridine 95 MG Tablet 190 MG PO (14:19)
[2024-05-12] MEDS: Pantoprazole Sodium 40 MG Tablet PO (14:20)
[2024-05-12] MEDS: Acetaminophen 500 MG Tablet 1000 MG PO (14:21)
[2024-05-12] MEDS: metFORMIN (XR) 500 MG Tablet PO (14:24)
[2024-05-12] MEDS: QUEtiapine 25 MG Tablet 50 MG PO (14:54)
[2024-05-12] MEDS: Levothyroxine 100 MCG Tablet 200 MCG PO (16:05)
--- NOTE | 2024-05-12 17:40 | EX.PCM.DISCH ---
Discharge Instructions Diet Discharge Diet: No restrictions Activity Discharge Activity: Return to Normal Activity Dressing / Incision Call your doctor if you observe: Fever of 101 or Higher, Inability to urinate and Inability to have a bowel movement Follow Up Care Please Follow Up With: Sana Mercado MD When: The office will call to make arrangements for follow up procedures. Test Results: Test results from this visit will be discussed in further detail at your follow-up appointment, if applicable. Discharge Plan Admission Admit Date/Time: 05/11/24 19:36 Attending Provider: Sana Mercado Primary Care Provider: Magda Cantrell NP Discharge Orders/Prescriptions Prescriptions: New ondansetron HCl 8 mg tablet 8 mg PO Q8H PRN PRN (Reason: Nausea) 7 Days Qty: 20 0RF oxycodone-acetaminophen [Percocet] 5-325 mg tablet 1 tab PO Q8H PRN (Reason: pain) 5 Days Qty: 14 0RF cephalexin 500 mg capsule 500 mg PO 3XD 5 Days Qty: 15 0RF phenazopyridine [Pyridium] 200 mg tablet 200 mg PO TID PRN PRN (Reason: Bladder Spasms) 7 Days Qty: 30 3RF Continued atorvastatin 20 mg tablet 20 mg PO DAILY metformin 500 mg tablet extended release 24 hr 500 mg PO DAILY quetiapine 50 mg tablet extended release 24 hr 100 mg PO DAILY Patient Comments: TAKE 2 TABLETS BY MOUTH ONCE DAILY lamotrigine 200 mg tablet 200 mg PO DAILY omeprazole 40 mg capsule,delayed release(DR/EC) 40 mg PO DAILY levothyroxine 200 mcg tablet 200 mcg PO DAILY buspirone 10 mg tablet 10 mg PO TID Referrals / Follow Up: Magda Cantrell ENGINEERING PRODUCTION WORKER, ENGINEERING PRODUCTION WORKER-C [Primary Care Provider] - Disposition Disposition (needs filled in before D/C Order can be placed): Home, Self Care
== END 2024-05-12 18:21 | disposition home or self-care (01) ==
LOC: ED 16:45 → MS3 05-12 06:31
PROVIDERS: Anesthesiology; Admitting Provider Urology; Emergency Provider Student in an Organized Health Care Education/Training Program; PCP Nurse Practitioner; Visit Provider Urology
PROC: (CPT 52332; principal; 2024-05-12 12:20)
DX: N13.6 Pyonephrosis (principal); F31.9 Bipolar disorder, unspecified; E78.5 Hyperlipidemia, unspecified; F17.210 Nicotine dependence, cigarettes, uncomplicated; E03.9 Hypothyroidism, unspecified; Z79.899 Other long term (current) drug therapy; Z79.84 Long term (current) use of oral hypoglycemic drugs; Z79.890 Hormone replacement therapy; F41.9 Anxiety disorder, unspecified
CPT/HCPCS: 52332; 00910; 36415; 74176; 76000; 80048; 81001; 83036; 84443; 84703; 85025; 87086; 87088; 93005; 96361; 96365; 96366; 96375; 96376; 99221; 99284; 99406; J7120; G0378; J2405

== ENCOUNTER 2024-05-28 09:23 | Day surgery (SDC) | payer BC, MEDICAID, SELFPAY ==
[2024-05-28] VITALS (7 sets, daily range): BP systolic 93–114; BP diastolic 56–80; PULSE 55–62; RESP 16–18; TEMP 36.4–36.8; O2SAT 92–99; BMI 41.0
--- NOTE | 2024-05-28 09:35 | DCINST_ITS ---
Discharge Instructions Diet Discharge Diet: No restrictions Activity Discharge Activity: Return to Normal Activity Follow Up Care Please Follow Up With: Sana Mercado MD When: The office will call her to make follow up arrangements. Test Results: Test results from this visit will be discussed in further detail at your follow- up appointment, if applicable. Discharge Plan Admission Attending Provider: Sana Mercado Primary Care Provider: Magda Cantrell NP Instructions Print Language: Kyrgyz Discharge Orders/Prescriptions Prescriptions: New oxycodone-acetaminophen [Percocet] 5-325 mg tablet 1 tab PO Q8H PRN (Reason: pain) 3 Days Qty: 10 0RF cephalexin 500 mg capsule 500 mg PO Q12 3 Days Qty: 6 0RF Continued atorvastatin 20 mg tablet 20 mg PO DAILY metformin 500 mg tablet extended release 24 hr 500 mg PO DAILY quetiapine 50 mg tablet extended release 24 hr 100 mg PO QHS Patient Comments: TAKE 2 TABLETS BY MOUTH ONCE DAILY lamotrigine 200 mg tablet 200 mg PO DAILY omeprazole 40 mg capsule,delayed release(DR/EC) 40 mg PO DAILY levothyroxine 200 mcg tablet 200 mcg PO DAILY buspirone 10 mg tablet 10 mg PO TID ondansetron HCl 8 mg tablet 8 mg PO Q8H PRN PRN (Reason: Nausea) 7 Days Qty: 20 0RF oxycodone-acetaminophen [Percocet] 5-325 mg tablet 1 tab PO Q8H PRN (Reason: pain) 5 Days Qty: 14 0RF phenazopyridine [Pyridium] 200 mg tablet 200 mg PO TID PRN PRN (Reason: Bladder Spasms) 7 Days Qty: 30 3RF Referrals / Follow Up: Magda Cantrell MOLD SHOP SUPERVISOR, MOLD SHOP SUPERVISOR-C [Primary Care Provider] - Disposition Disposition (needs filled in before D/C Order can be placed): Home, Self Care
--- NOTE | 2024-05-28 09:38 | PCM.OPRPT ---
Report of Operation Date of Procedure: 05/28/24 Pre-Operative Diagnosis: bilateral kidney stones Post-Operative Diagnosis: same Surgery/Procedure Performed:: right renal extracorporal shockwave lithotripsy Type of Anesthesia: General Specimen's removed: None Description of Procedure: The patient is a 43-year-old female with bilateral renal stones who underwent a cystoscopy and bilateral ureteral stent insertion approximately 2 weeks ago. She now presents for intervention for her stones. Informed consent was obtained. She was taken to the operating room and placed on the operating room table. Anesthesia monitored the head, neck, airway, IV access and vital signs throughout the case. Once anesthesia was appropriately administered, she was aligned with the lithotripter. The stone was easily visible. 3000 shocks were applied and the stone appeared to be fragmented at the conclusion of the case. She was then awakened and taken to the recovery room in good condition. There were no complications during this procedure. Grafts/Implants Used: None Complications None Admit VTE Documentation VTE Present on Admission: Yes VTE Mechan Device Prophylaxis: SCD's VTE Pharm Prophylaxis ordered?: No Reason prophylaxis not ordered:: Treatment Not Indicated
[2024-05-28 09:50] LABS: Internal QC Validated? YES +Cl - CLEAR BKGD; Pregnancy, Urine Negative Negative
[2024-05-28] MEDS: Lactated Ringers 1,000 ML 15 ML IV (09:54)
[2024-05-28 09:57] LABS: Bedside Glucose 123 mg/dL (74-106)
--- NOTE | 2024-05-28 10:12 | PCM.PRE.AN2 ---
ASA Classification* ASA Classification ASA Classification: 3 Assessment & Plan Anesthesia* Anesthesia Assessment Anesthesia Assessment: Discussed sedation and/or anesthesia options, risks, benefits, and alternatives with patient/parents/legal guardian/POA. Questions invited. The patient/parents/legal guardian/POA seems to understand and agrees to proceed with anesthesia plan. Reviewed the physical assessment, medical history, allergy history and patient home medications list prior to surgery/procedure/anesthetic and documented any changes. Performed airway and anesthesia risk assessments. Anesthesia Type Anesthesia Type: General (see written pre anesthesia record for full assessment) Anesthesia Focused Assessment* Temperature: 98.2 F Pulse Rate: 59 Blood Pressure: 93/56 Respiratory Rate: 18 Pulse Ox: 99 Airway Assessment Mouth opens: >3 cm Mallampati Score: II Focused Labs Anesthesia Preop lab: CBC WBC 8.5 K/mm3 (4.4-11.0) 05/12/24 06:31 RBC 4.01 M/mm3 (4.2-5.4) L 05/12/24 06:31 Hgb 10.2 g/dL (12.0-15.0) L 05/12/24 06:31 Hct 32.9 % (37-47) L 05/12/24 06:31 Plt Count 347 K/mm3 (150-450) 05/12/24 06:31 CHEMISTRY Potassium 3.8 mmol/L (3.5-5.1) 05/12/24 06:31 Sodium 140 mmol/L (136-145) 05/12/24 06:31 Magnesium 2.5 mg/dL (1.6-2.6) 06/11/22 12:37 BUN 14 mg/dL (7-18) 05/12/24 06:31 Creatinine 0.78 mg/dL (0.55-1.02) 05/12/24 06:31 Glucose 100 mg/dL (74-106) 05/12/24 06:31 POC Glucose 123 mg/dL (74-106) H 05/28/24 09:39 TSH 146.00 uIU/mL (0.358-3.74) H 05/12/24 06:31 COAG Urine Test Negative Negative 05/28/24 09:30 Pre-Assessment Diagnosis/Proposed Procedure Planned Operative Procedure(s): (R) ESWL Right Anesthesia History Anesthesia History - community organizer: Anesthesia History - community organizer Hx Hospitalization No 05/25/24 14:39 Any Problems With Anesthesia Yes: WAKES UP MEAN AFTER 05/25/24 14:39 GENERAL ANETHESIA Cholinesterase deficiency No 05/25/24 14:39 You/Your Family Experience No 05/25/24 14:39 fever (hyperthermia) with Relationship Recent Exposure to Contagious No 05/28/24 09:55 Disease Does patient have nerve No 05/25/24 14:39 stimulator Patient instructed to have device shut off --Does patient have Pacemaker No 05/28/24 09:55 or ICD? When Was Last Pacemaker Check QUESTION #4 FULL TEXT: You/Your Family Experience fever (hyperthermia) with Anesthesia Last Oral Intake Last Oral intake: Last Oral Intake NPO since 00:00 05/28/24 09:55 Meds taken in AM with sips of No 05/28/24 09:55 water? Meds patient instructed to take am of surgery PONV PONV - community organizer: PONV - community organizer Female Yes 05/25/24 14:17 HX of Motion Sickness Yes 05/25/24 14:17 HX of N/V After Surgery No 05/25/24 14:17 Non-Smoker No 05/25/24 14:17 Duration of Surgery greater No 05/25/24 14:17 than 60 minutes Number of Risk Factors 2 05/25/24 14:17 PONV Score Moderate Risk 05/25/24 14:17 Height & Weight Height & Weight: Anesthesia: Height & Weight Height 5 ft 7 in 05/28/24 09:55 Weight: 118.841 kg 05/28/24 09:55 Body Mass Index (BMI) 41.0 05/28/24 09:55 Respiratory Assessment Respiratory Assessment - community organizer: Respiratory Tract Infection Hx - community organizer Hx Respiratory Tract Infection No 05/25/24 14:39 STOP Sleep Apnea STOP Sleep Apnea - community organizer: STOP Sleep Apnea - community organizer Hx Hypertension No 05/25/24 14:39 Hx Sleep Apnea Yes: NON-COMPLIANT 05/25/24 14:39 CPAP Yes 05/25/24 14:39 BIPAP No 05/25/24 14:39 Do you snore loudly (louder than talking or can be heard Do you often feel tired/ fatigued/ sleepy during daytime? Has anyone observed you stop breathing during sleep? STOP Results Positive 05/25/24 14:17 QUESTION #5 FULL TEXT : Do you snore loudly (louder than talking or can be heard through closed doors)? 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 Specify any problems Hx of Preganancy in last 3 No 05/25/24 14:17 Months Nurse Filling Out Transfusion VCHRISTIN 05/25/24 14:17 & Questions: Date: 05/25/24 05/25/24 14:17 Time: 14:18 05/25/24 14:17 Patient unable to answer at this time (ie. confused, unrespo /Reproduction History /Reproductive History - community organizer: /Reproductive Hx- community organizer Hx Now No 05/25/24 14:17 Gestational Age (in weeks): EDC: Hx Hx Para Hx Section SAB No 05/25/24 14:39 Active Medications Active Medications: Current Medications Generic Name Dose Route Start Last Admin Trade Name Freq PRN Reason Stop Dose Admin Cefazolin Sodium 2 gm/ Sodium 110 mls @ 150 mls/hr 05/28/24 10:55 Chloride IV 05/28/24 11:38 PREOP ONE Lactated Ringer's 1,000 mls @ 15 mls/hr 05/28/24 09:30 05/28/24 09:54 IV 15 mls/hr .Q48H FRANCK Administration PFSH Medical History Wears glasses Marijuana use Thyroid disease Diabetes Arthritis Gastric reflux Chronic cough Substance abuse Anxiety Depression Bipolar disorder Hypothyroidism Smoker CPAP (continuous positive airway pressure) dependence Sleep apnea Hyperlipidemia Hyperthyroidism Home Medications ?Medication ?Instructions ?Recorded ?Last Taken ?Type atorvastatin 20 mg tablet 20 mg PO DAILY 06/11/22 05/27/24 History metformin 500 mg tablet,extended 500 mg PO DAILY 06/11/22 05/27/24 History release 24 hr quetiapine 50 mg tablet,extended 100 mg PO QHS Sleep 06/11/22 05/27/24 History release 24 hr buspirone 10 mg tablet 10 mg PO TID Anxiety 05/11/24 05/27/24 History lamotrigine 200 mg tablet 200 mg PO DAILY 05/11/24 05/27/24 History levothyroxine 200 mcg tablet 200 mcg PO DAILY 05/11/24 05/27/24 History omeprazole 40 mg capsule,delayed 40 mg PO DAILY 05/11/24 05/27/24 History release ondansetron HCl 8 mg tablet 8 mg PO Q8H PRN PRN Nausea 7 days 05/12/24 Unknown Rx #20 TABLETS oxycodone-acetaminophen 5 mg-325 1 tab PO Q8H PRN pain 5 days #14 05/12/24 Unknown Rx mg tablet (Percocet) tabs phenazopyridine 200 mg tablet 200 mg PO TID PRN PRN Bladder 05/12/24 Unknown Rx (Pyridium) Spasms 7 days #30 tabs Allergy/AdvReac Type Severity Reaction Status Date / Time No Known Allergies Allergy Verified 05/28/24 09:53 Surgical History Hx of cystoscopy Hx of cystoscopy Hx of cholecystectomy Social History Smoking Status: Current every day smoker tobacco type: cigarettes Review of Systems (Anesthesia) ROS Narrative System reviewed and no additional complaints, except as documented.
[2024-05-28] MEDS: Cefazolin 2 GM in 0.9% Normal Saline (100mL Bag) 100 ML IV (10:33)
--- NOTE | 2024-05-28 11:33 | PCM.POST.ANE ---
Anesthesia: Postop Eval I Current Vital Signs Temperature: 98.1 F Pulse Rate: 58 Blood Pressure: 114/80 Respiratory Rate: 16 Pulse Ox: 92 Oxygen Delivery Method: Room Air Assessment Airway patent: Yes Spontaneous unlabored respirations: Yes Mental status: Awake nausea: No Vomiting: No Anesthesia Complication: No Fluid Hydration Crystalloid volume administer (ml): 700 Total IV fluid infused: 700 Progress Note Anesthesia document: Postop Eval 1 completed: Yes
--- NOTE | 2024-05-28 13:49 | POSTOPAN2_ITS ---
Anesthesia Postop Eval I Sum Postop Eval Completion status Anesthesia document: Postop Eval 1 completed: Yes Anesthesia Postop Eval I Summary Anesthesia Postop Eval I Summary: Anesthesia Postop Eval I: Assessment Summary Airway patent Yes 05/28/24 11:33 GUARDIAN FAMILY MEMBER.MDOT Spontaneous unlabored Yes 05/28/24 11:33 GUARDIAN FAMILY MEMBER.MDOT respirations Mental status Awake 05/28/24 11:33 GUARDIAN FAMILY MEMBER.MDOT nausea No 05/28/24 11:33 GUARDIAN FAMILY MEMBER.MDOT Vomiting No 05/28/24 11:33 GUARDIAN FAMILY MEMBER.MDOT Anesthesia Postop Eval I: Fluid Summary Crystalloid volume administer 700 05/28/24 11:33 GUARDIAN FAMILY MEMBER.MDOT (ml) Colloids volume administered ( ml) Blood Product volume administered (ml) Total IV fluid infused 700 05/28/24 11:33 GUARDIAN FAMILY MEMBER.OT Anesthesia Postop Eval I: Summary Notes Anesthesia Complication No 05/28/24 11:33 GUARDIAN FAMILY MEMBER.MDOT Anesthesia Complication Comment: Post-operative progress note Anesthesia: Postop Eval II Evaluation Mental status: Awake Pain Level: 0 nausea: No Vomiting: No
--- NOTE | 2024-05-28 13:49 | PCM.POSTANE2 ---
Anesthesia Postop Eval I Sum Postop Eval Completion status Anesthesia document: Postop Eval 1 completed: Yes Anesthesia Postop Eval I Summary Anesthesia Postop Eval I Summary: Anesthesia Postop Eval I: Assessment Summary Airway patent Yes 05/28/24 11:33 SHRIMP [email or web address].MDOT Spontaneous unlabored Yes 05/28/24 11:33 SHRIMP CLEANER.MDOT respirations Mental status Awake 05/28/24 11:33 SHRIMP CLEANER.MDOT nausea No 05/28/24 11:33 SHRIMP CLEANER.MDOT Vomiting No 05/28/24 11:33 SHRIMP CLEANER.MDOT Anesthesia Postop Eval I: Fluid Summary Crystalloid volume administer 700 05/28/24 11:33 SHRIMP CLEANER.MDOT (ml) Colloids volume administered ( ml) Blood Product volume administered (ml) Total IV fluid infused 700 05/28/24 11:33 SHRIMP CLEANER.OT Anesthesia Postop Eval I: Summary Notes Anesthesia Complication No 05/28/24 11:33 SHRIMP CLEANER.MDOT Anesthesia Complication Comment: Post-operative progress note Anesthesia: Postop Eval II Evaluation Mental status: Awake Pain Level: 0 nausea: No Vomiting: No
== END 2024-05-28 12:24 | disposition home or self-care (01) ==
LOC: SDC 09:24 → AC 09:26
PROVIDERS: PCP Nurse Practitioner; Referring Provider Urology; Visit Provider Urology
PROC: (CPT 50590; principal; 2024-05-28 10:45)
DX: N20.0 Calculus of kidney (principal); E11.9 Type 2 diabetes mellitus without complications; F17.200 Nicotine dependence, unspecified, uncomplicated; K21.9 Gastro-esophageal reflux disease without esophagitis; E03.9 Hypothyroidism, unspecified; F12.90 Cannabis use, unspecified, uncomplicated; Z79.899 Other long term (current) drug therapy; Z79.84 Long term (current) use of oral hypoglycemic drugs
CPT/HCPCS: 50590; 00873; 81025; 82962; J7120; J2405

== ENCOUNTER 2024-06-11 10:23 | Day surgery (SDC) | payer BC, MEDICAID, SELFPAY ==
[2024-06-11] VITALS (9 sets, daily range): BP systolic 98–123; BP diastolic 61–84; PULSE 57–69; RESP 16–18; TEMP 36.4–37; O2SAT 93–97; BMI 41.6
[2024-06-11 10:44] LABS: Internal QC Validated? YES +Cl - CLEAR BKGD; Pregnancy, Urine Negative Negative
--- NOTE | 2024-06-11 10:54 | PRE.ANES_ITS ---
ASA Classification* ASA Classification ASA Classification: 3 Assessment & Plan Anesthesia* Anesthesia Assessment Anesthesia Assessment: Discussed sedation and/or anesthesia options, risks, benefits, and alternatives with patient/parents/legal guardian/POA. Questions invited. The patient/parents/legal guardian/POA seems to understand and agrees to proceed with anesthesia plan. Reviewed the physical assessment, medical history, allergy history and patient home medications list prior to surgery/procedure/anesthetic and documented any changes. Performed airway and anesthesia risk assessments. Anesthesia Type Anesthesia Type: General (see written pre-anesthesia record for full assessment) Anesthesia Focused Assessment* Temperature: 97.5 F Pulse Rate: 69 Blood Pressure: 123/84 Respiratory Rate: 18 Pulse Ox: 97 Airway Assessment Mouth opens: >3 cm Mallampati Score: II Focused Labs Anesthesia Preop lab: CBC WBC 8.5 K/mm3 (4.4-11.0) 05/12/24 06:31 RBC 4.01 M/mm3 (4.2-5.4) L 05/12/24 06:31 Hgb 10.2 g/dL (12.0-15.0) L 05/12/24 06:31 Hct 32.9 % (37-47) L 05/12/24 06:31 Plt Count 347 K/mm3 (150-450) 05/12/24 06:31 CHEMISTRY Potassium 3.8 mmol/L (3.5-5.1) 05/12/24 06:31 Sodium 140 mmol/L (136-145) 05/12/24 06:31 Magnesium 2.5 mg/dL (1.6-2.6) 06/11/22 12:37 BUN 14 mg/dL (7-18) 05/12/24 06:31 Creatinine 0.78 mg/dL (0.55-1.02) 05/12/24 06:31 Glucose 100 mg/dL (74-106) 05/12/24 06:31 POC Glucose 123 mg/dL (74-106) H 05/28/24 09:39 TSH 146.00 uIU/mL (0.358-3.74) H 05/12/24 06:31 COAG Urine Test Negative Negative 06/11/24 10:35 Pre-Assessment Diagnosis/Proposed Procedure Planned Operative Procedure(s): LEFT RENAL ESWL, POSSIBLE CYSTO, STENT REMOVAL Anesthesia History Anesthesia History - box office attendant: Anesthesia History - box office attendant Hx Hospitalization No 05/25/24 14:39 Any Problems With Anesthesia Yes: WAKES UP MEAN AFTER 05/25/24 14:39 GENERAL ANETHESIA Cholinesterase deficiency No 05/25/24 14:39 You/Your Family Experience No 05/25/24 14:39 fever (hyperthermia) with Relationship Recent Exposure to Contagious No 06/11/24 10:40 Disease Does patient have nerve No 05/25/24 14:39 stimulator Patient instructed to have device shut off --Does patient have Pacemaker No 06/11/24 10:43 or ICD? When Was Last Pacemaker Check QUESTION #4 FULL TEXT: You/Your Family Experience fever (hyperthermia) with Anesthesia Last Oral Intake Last Oral intake: Last Oral Intake NPO since 23:00 06/11/24 10:43 Meds taken in AM with sips of No 06/11/24 10:43 water? Meds patient instructed to take am of surgery PONV PONV - box office attendant: PONV - box office attendant Female Yes 05/25/24 14:39 HX of Motion Sickness Yes 05/25/24 14:39 HX of N/V After Surgery No 05/25/24 14:39 Non-Smoker No 05/25/24 14:39 Duration of Surgery greater No 05/25/24 14:39 than 60 minutes Number of Risk Factors 2 05/25/24 14:39 PONV Score Moderate Risk 05/25/24 14:39 Height & Weight Height & Weight: Anesthesia: Height & Weight Height 5 ft 7 in 06/11/24 10:43 Weight: 120.656 kg 06/11/24 10:43 Body Mass Index (BMI) 41.6 06/11/24 10:43 Respiratory Assessment Respiratory Assessment - box office attendant: Respiratory Tract Infection Hx - box office attendant Hx Respiratory Tract Infection No 05/25/24 14:39 STOP Sleep Apnea STOP Sleep Apnea - box office attendant: STOP Sleep Apnea - box office attendant Hx Hypertension No 05/25/24 14:39 Hx Sleep Apnea Yes: NON-COMPLIANT 05/25/24 14:39 CPAP Yes 05/25/24 14:39 BIPAP No 05/25/24 14:39 Do you snore loudly (louder than talking or can be heard Do you often feel tired/ fatigued/ sleepy during daytime? Has anyone observed you stop breathing during sleep? STOP Results Positive 05/25/24 14:39 QUESTION #5 FULL TEXT : Do you snore loudly (louder than talking or can be heard through closed doors)? Tobacco Use History Tobacco Use History - box office attendant: Tobacco Use History - box office attendant Tobacco Use Smoking Status Current every day smoker 05/25/24 14:39 Hx Tobacco Use Yes 05/25/24 14:39 Years Smoking Packs Smoked per Day Smoking Cessation Date was within the last 15 years Hx Smoking Cessation Date Hx Smoking Cessation Counseling Hematologic Medial History Hematologic Hx - box office attendant: Hematologic Medical Hx - information technology architect Hx of Blood Transfusion No 05/25/24 14:39 Hx of Transfusion in last 3 No 05/25/24 14:39 Months Date of Last Transfusion (if within last 3 months) Ever experience any problems No 05/25/24 14:39 with transfusion(s)? Specify any problems Hx of Preganancy in last 3 No 05/25/24 14:39 Months Nurse Filling Out Transfusion VCHRISTIN 05/25/24 14:39 & Questions: Date: 05/25/24 05/25/24 14:39 Time: 14:40 05/25/24 14:39 Patient unable to answer at this time (ie. confused, unrespo /Reproduction History /Reproductive History - box office attendant: /Reproductive Hx- box office attendant Hx Now Gestational Age (in weeks): EDC: Hx Hx Para Hx Section SAB No 05/25/24 14:39 Active Medications Active Medications: Current Medications Generic Name Dose Route Start Last Admin Trade Name Freq PRN Reason Stop Dose Admin Lactated Ringer's 1,000 mls @ 15 mls/hr 06/11/24 10:45 06/11/24 10:47 IV 15 mls/hr .Q48H FRANCK Administration PFSH Medical History Wears glasses Marijuana use Thyroid disease Diabetes Arthritis Gastric reflux Chronic cough Substance abuse Anxiety Depression Bipolar disorder Hypothyroidism Smoker CPAP (continuous positive airway pressure) dependence Sleep apnea Hyperlipidemia Hyperthyroidism Home Medications ?Medication ?Instructions ?Recorded ?Last Taken ?Type atorvastatin 20 mg tablet 20 mg PO DAILY 06/11/22 06/10/24 History metformin 500 mg tablet,extended 500 mg PO DAILY 06/11/22 06/10/24 History release 24 hr quetiapine 50 mg tablet,extended 100 mg PO QHS Sleep 06/11/22 06/10/24 History release 24 hr buspirone 10 mg tablet 10 mg PO TID Anxiety 05/11/24 06/10/24 History lamotrigine 200 mg tablet 200 mg PO DAILY 05/11/24 06/10/24 History levothyroxine 200 mcg tablet 200 mcg PO DAILY 05/11/24 06/10/24 History omeprazole 40 mg capsule,delayed 40 mg PO DAILY 05/11/24 06/10/24 History release ondansetron HCl 8 mg tablet 8 mg PO Q8H PRN PRN Nausea 7 days 05/12/24 Unknown Rx #20 TABLETS oxycodone-acetaminophen 5 mg-325 1 tab PO Q8H PRN pain 5 days #14 05/12/24 Unknown Rx mg tablet (Percocet) tabs phenazopyridine 200 mg tablet 200 mg PO TID PRN PRN Bladder 05/12/24 Unknown Rx (Pyridium) Spasms 7 days #30 tabs cephalexin 500 mg capsule 500 mg PO Q12 post-operative 3 05/28/24 Unknown Rx days #6 CAPSULES oxycodone-acetaminophen 5 mg-325 1 tab PO Q8H PRN pain 3 days #10 05/28/24 Unknown Rx mg tablet (Percocet) tabs Allergy/AdvReac Type Severity Reaction Status Date / Time No Known Allergies Allergy Verified 06/11/24 10:38 Surgical History Hx of cystoscopy Hx of cystoscopy Hx of cholecystectomy Social History Smoking Status: Current every day smoker tobacco type: cigarettes Review of Systems (Anesthesia) ROS Narrative System reviewed and no additional complaints, except as documented.
--- NOTE | 2024-06-11 11:01 | EX.PCM.DISCH ---
Discharge Instructions Diet Discharge Diet: No restrictions Activity Discharge Activity: Return to Normal Activity Dressing / Incision Call your doctor if you observe: Fever of 101 or Higher, Inability to urinate and Inability to have a bowel movement Follow Up Care Please Follow Up With: Sana Mercado MD When: The office will call to make follow up arrangements. Test Results: Test results from this visit will be discussed in further detail at your follow-up appointment, if applicable. Discharge Plan Admission Attending Provider: Sana Mercado Primary Care Provider: Magda Cantrell NP Instructions Print Language: Senegalese Discharge Orders/Prescriptions Prescriptions: New oxycodone-acetaminophen [Percocet] 5-325 mg tablet 1 tab PO Q8H PRN (Reason: pain) 3 Days Qty: 10 0RF cephalexin 500 mg capsule 500 mg PO Q12 3 Days Qty: 6 0RF Continued atorvastatin 20 mg tablet 20 mg PO DAILY metformin 500 mg tablet extended release 24 hr 500 mg PO DAILY quetiapine 50 mg tablet extended release 24 hr 100 mg PO QHS Patient Comments: TAKE 2 TABLETS BY MOUTH ONCE DAILY lamotrigine 200 mg tablet 200 mg PO DAILY omeprazole 40 mg capsule,delayed release(DR/EC) 40 mg PO DAILY levothyroxine 200 mcg tablet 200 mcg PO DAILY buspirone 10 mg tablet 10 mg PO TID ondansetron HCl 8 mg tablet 8 mg PO Q8H PRN PRN (Reason: Nausea) 7 Days Qty: 20 0RF oxycodone-acetaminophen [Percocet] 5-325 mg tablet 1 tab PO Q8H PRN (Reason: pain) 5 Days Qty: 14 0RF phenazopyridine [Pyridium] 200 mg tablet 200 mg PO TID PRN PRN (Reason: Bladder Spasms) 7 Days Qty: 30 3RF oxycodone-acetaminophen [Percocet] 5-325 mg tablet 1 tab PO Q8H PRN (Reason: pain) 3 Days Qty: 10 0RF cephalexin 500 mg capsule 500 mg PO Q12 3 Days Qty: 6 0RF Referrals / Follow Up: Magda Cantrell NP, MAKEUP SALES ADVISOR-C [Primary Care Provider] - Disposition Disposition (needs filled in before D/C Order can be placed): Home, Self Care
--- NOTE | 2024-06-11 11:04 | PCM.OPRPT ---
Report of Operation Date of Procedure: 06/11/24 Pre-Operative Diagnosis: bilateral renal stones Post-Operative Diagnosis: same Surgery/Procedure Performed:: left renal extracorporal shockwave lithotripsy, cystoscopy with removal of right ureteral stent Surgeon: Sana Mercado Type of Anesthesia: General Description of Procedure: The patient is a 43-year-old female with bilateral renal stones and underwent a right sided extracorporal shockwave lithotripsy 2 weeks ago. She now presents for management of her left-sided stone and removal of the right stent if the stone has resolved. Informed consent was obtained. She was taken to the operating room and placed on the operating room table. Anesthesia monitored the head, neck, airway, IV access and vital signs throughout the case. Once anesthesia was appropriate ministered, fluoroscopy was used to determine that she has passed the right stone without evidence of residual. Her feet were positioned into dorsolithotomy and she was prepped and draped in usual sterile fashion. The cystoscope was inserted through the urethra under direct visualization into the urinary bladder. The right ureteral stent was observed and grasped with a forceps and removed without dislodging the left ureteral stent. At this time the patient was placed into supine position and was aligned with the lithotripter. 3000 shocks were applied to her left renal calculus. The stone appeared to be well fragmented at the conclusion of the case. She was awakened and taken to the recovery room in good condition. There were no complications during this procedure. Grafts/Implants Used: none Complications none Admit VTE Documentation VTE Present on Admission: Yes VTE Mechan Device Prophylaxis: SCD's VTE Pharm Prophylaxis ordered?: No Reason prophylaxis not ordered:: Treatment Not Indicated
[2024-06-11 11:12] LABS: Bedside Glucose 103 mg/dL (74-106)
--- NOTE | 2024-06-11 12:08 | PCM.POST.ANE ---
Anesthesia: Postop Eval I Current Vital Signs Temperature: 98.4 F Pulse Rate: 69 Blood Pressure: 98/62 Respiratory Rate: 16 Pulse Ox: 93 Oxygen Delivery Method: Room Air Assessment Airway patent: Yes Spontaneous unlabored respirations: Yes Mental status: Awake and Calm nausea: No Vomiting: No Anesthesia Complication: No Fluid Hydration Crystalloid volume administer (ml): 500 Total IV fluid infused: 500 Progress Note Post-operative progress note: C&DB enc'd Anesthesia document: Postop Eval 1 completed: Yes
--- NOTE | 2024-06-11 14:34 | POSTOPAN2_ITS ---
Anesthesia Postop Eval I Sum Postop Eval Completion status Anesthesia document: Postop Eval 1 completed: Yes Anesthesia Postop Eval I Summary Anesthesia Postop Eval I Summary: Anesthesia Postop Eval I: Assessment Summary Airway patent Yes 06/11/24 12:09 NATIONAL VAN OWNER OPERATOR.[email or web address] Spontaneous unlabored Yes 06/11/24 12:09 NATIONAL VAN OWNER OPERATOR.BABAK respirations Mental status Awake,Calm 06/11/24 12:09 NATIONAL VAN OWNER OPERATOR.OT nausea No 06/11/24 12:09 NATIONAL VAN OWNER OPERATOR.OT Vomiting No 06/11/24 12:09 NATIONAL VAN OWNER OPERATOR.BABAK Anesthesia Postop Eval I: Fluid Summary Crystalloid volume administer 500 06/11/24 12:09 NATIONAL VAN OWNER OPERATOR.MDOT (ml) Colloids volume administered ( ml) Blood Product volume administered (ml) Total IV fluid infused 500 06/11/24 12:09 NATIONAL VAN OWNER OPERATOR.BABAK Anesthesia Postop Eval I: Summary Notes Anesthesia Complication No 06/11/24 12:09 NATIONAL VAN OWNER OPERATOR.BABAK Anesthesia Complication Comment: Post-operative progress note C&DB enc'd 06/11/24 12:09 NATIONAL VAN OWNER OPERATOR.BABAK Anesthesia: Postop Eval II Evaluation Mental status: Awake and Calm Pain Level: 1 nausea: No Vomiting: No Complications Anesthesia Complication: No
--- NOTE | 2024-06-11 14:34 | PCM.POSTANE2 ---
Anesthesia Postop Eval I Sum Postop Eval Completion status Anesthesia document: Postop Eval 1 completed: Yes Anesthesia Postop Eval I Summary Anesthesia Postop Eval I Summary: Anesthesia Postop Eval I: Assessment Summary Airway patent Yes 06/11/24 12:09 [email or web address] Spontaneous unlabored Yes 06/11/24 12:09 [email or web address] respirations Mental status Awake,Calm 06/11/24 12:09 [email or web address] nausea No 06/11/24 12:09 [email or web address] Vomiting No 06/11/24 12:09 [email or web address] Anesthesia Postop Eval I: Fluid Summary Crystalloid volume administer 500 06/11/24 12:09 [email or web address] (ml) Colloids volume administered ( ml) Blood Product volume administered (ml) Total IV fluid infused 500 06/11/24 12:09 [email or web address] Anesthesia Postop Eval I: Summary Notes Anesthesia Complication No 06/11/24 12:09 [email or web address] Anesthesia Complication Comment: Post-operative progress note C&DB enc'd 06/11/24 12:09 [email or web address] Anesthesia: Postop Eval II Evaluation Mental status: Awake and Calm Pain Level: 1 nausea: No Vomiting: No Complications Anesthesia Complication: No
== END 2024-06-11 12:44 | disposition home or self-care (01) ==
LOC: SDC 10:26 → AC 10:26
PROVIDERS: PCP Nurse Practitioner; Referring Provider Urology; Visit Provider Urology
PROC: (CPT 50590; principal; 2024-06-11 11:30)
DX: N20.0 Calculus of kidney (principal); E11.9 Type 2 diabetes mellitus without complications; F17.210 Nicotine dependence, cigarettes, uncomplicated; Z79.84 Long term (current) use of oral hypoglycemic drugs
CPT/HCPCS: 50590; 52310; 00873; 81025; 82962; J7120; J2405

== ENCOUNTER → 2024-07-01 | Outpatient (CLI) | payer BC, MEDICAID, SELFPAY ==
--- NOTE | 2024-07-01 12:47 | RAD_ITS ---
STUDY: X-RAY - ABDOMEN/PELVIS REASON FOR EXAM: Female, 43 years old. Kidney stones. TECHNIQUE: Single AP view of the abdomen / pelvis on 2 images. COMPARISON: CT of the abdomen and pelvis dated May 11, 2024 FINDINGS: Normal visualized lung bases. Normal bowel gas pattern with air seen to the rectosigmoid. Left ureteral catheter in anatomic alignment. Calcifications present on the prior CT no longer seen on the abdominal study. Normal soft tissue structures. Normal visualized osseous structures. RAD/Abdomen Single View IMPRESSION: Resolution of calcifications. No acute abnormality. Electronically Signed: Yosef Daugherty MD at 15:31 EDT ,
== END | disposition home or self-care (01) ==
LOC: MTRAD 12:46
PROVIDERS: PCP Nurse Practitioner; Referring Provider Urology; Visit Provider Urology
DX: N20.0 Calculus of kidney (principal)
CPT/HCPCS: 74018